=== PATIENT | male | born 1990 | race Caucasian/White ===

== ENCOUNTER 2023-01-19 20:42 | Inpatient (IN) | payer MEDICAID, SELFPAY ==
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
[2023-01-19 22:00] VITALS: BP 161/100; PULSE 100; RESP 18; TEMP 36.2; O2SAT 100
[2023-01-19 22:17] VITALS: BMI 26.5
--- NOTE | 2023-01-20 02:22 | PC.ADMIT ---
Adelso Ferguson is a 33yo male, [place] [facility] [place] [facility] for treatment of Schizoaffective disorder, SI, and auditory hallucination. He presented due to increase concerns of being non-meds compliant, hearing of voices and decompensation. Pt is on a riddle order and appears to have been cheeking medication. Pt also had seizure a week ago that has resulted in Med changes. He is calm but talkative with some incoherent speech[ mixing Setswana and Wolof together]. He is uncooperative preferring not to answer question directly which makes him difficult to understand during admission process. He denies SI/HI but appear to be responding to internal stimuli/ auditory hallucination, declined to sign authorization forms and safety tools yet to be done. Treatment plan initiated and hospitalist informed for consultation.
[2023-01-20 08:48] VITALS: BP 133/90; PULSE 96; RESP 16; TEMP 36.2; O2SAT 99
[2023-01-20] MEDS: Metoprolol Tartrate 12.5 MG HALFTAB PO ×2 (08:49→22:10)
[2023-01-20] MEDS: Levothyroxine Sodium 100 MCG TABLET PO (08:49)
[2023-01-20] MEDS: FLUoxetine HCl 20 MG CAPSULE 80 MG PO (08:49)
[2023-01-20 10:39] LABS: Neut%MD 76.7 %; WBCANC 15.6 X10*3/uL
--- NOTE | 2023-01-20 11:42 | HO.PSYADMNOT ---
[facility] Date of Service: 01/20/23 Chief Complaint: F25.0 Sources of Information: patient interviewed, chart reviewed and crisis/core team assessment reviewed HPI Subjective Notes: Alcantar Warning and Conditional Voluntary Narrative: The patient is a 33-year-old descent male, single, with no children, chronically mentally ill with a diagnosis of schizoaffective disorder bipolar type, with a guardianship and a court order for treatment over objection on Clozaril. He also carries a diagnosis of traumatic brain injury. The patient usually resides at a [facility] longterm but 1 week ago the patient had a seizure. His Clozaril was stopped and since then his mother pick him up from the longterm since she was worried that he could eloped. The patient was grossly psychotic, he decompensated very fast and his mother call 911 asking for crisis assessment. The patient was assessed by crisis and transferring initially to the emergency room of [facility]. He was medically cleared, reassessed by crisis and transferring to this facility for psychiatric stabilization. Apparently, the patient is fairly stable on Clozaril 50 mg p.o. q.a.m. and 400 mg p.o. q.h.s.. His Clozaril was stopped at least 5 days ago and he was seen grossly disorganized, responding to internal stimuli, with word salad, illogical but easily redirectable. Also he looks manic with disinhibited mood, singing and with an expansive mood. According to the report of the longterm staff, the patient had been abusing more cannabis recently. At the moment of the admission, we do not have his court order for treatment over objection, we only have part of the paperwork but there was no specifications of the maximum dose of Clozaril. He was agreeable to restart medications. I offer him a conditional voluntary and he signed it, he stated he wants to be in the hospital and he could understand Alcantar warning. Past Psychiatric History: As per crisis report he has prior admissions into the hospital for psychiatric admission. His [facility] case managed and he lives in a longterm. Medical Evaluation Reviewed: Yes [facility] Family History: Denies Social History: Chronically mentally ill, he lives in a longterm, he has [facility] case management services. Even though he has a family who is involved and looks after him. Substance History: History of cannabis abuse Trauma History: Unknown, the patient is a very poor historian Diagnostics Vital Signs (24Hr): Vital Signs - 24 hr 01/19/23 22:00 01/20/23 08:48 Temperature 97.1 F 97.1 F Pulse Rate 100 96 Respiratory Rate 18 16 Blood Pressure 161/100 H 133/90 H Pulse Oximetry 100 99 Oxygen Delivery Method Room Air Room Air BMI result Body Mass Index 26.5 Labs Labs: Laboratory Results - last 48 hr 01/20/23 10:16 Absolute Neuts (auto) 12.0 H Meds/Allergies Meds Home Medications Medication Instructions Recorded Confirmed Type clozapine 200 mg tablet 400 mg PO BEDTIME 01/20/23 01/20/23 History clozapine 50 mg tablet 50 mg PO QAM 01/20/23 01/20/23 History fluoxetine 40 mg capsule 80 mg PO QAM 01/20/23 01/20/23 History levothyroxine 100 mcg tablet 100 mcg PO DAILY 01/20/23 01/20/23 History metoprolol tartrate 25 mg tablet 12.5 mg PO BID 01/20/23 01/20/23 History Allergies Allergies Allergy/AdvReac Type Severity Reaction Status Date / Time Penicillins Allergy Anaphylaxis Verified 01/19/23 23:15 Mental Status Exam Mental Status Exam Patient Appearance: Appropriate and Unkempt Patient Orientation: Person and Situation Level of Consciousness: Awake and Restless Patient Behavior: Talkative, Restless, Good Eye Contact and Impulsive Mood Description: Elated Affect Description: Cheerful and Labile Patient Cognition Impaired: Yes Ability to Follow Directions: Fair Speech Pattern: Rambling, Rapid and Excited Hallucinations: Auditory and Visual Delusions: Grandiose and Ideas of Reference Thought Process: Incoherent, Illogical and Distracted Thought Content: positive for Perseveration, positive for Thought Blocking and positive for Tangential Judgement: Fair Assessment & Plan Assessment & Plan (1) Schizoaffective disorder: Status: Acute Code(s): F25.9 - Schizoaffective disorder, unspecified (2) Traumatic brain injury: Status: Acute Code(s): S06.9XAA - Unspecified intracranial injury with loss of consciousness status unknown, initial encounter (3) Seizure disorder: Status: Acute Code(s): G40.909 - Epilepsy, unspecified, not intractable, without status epilepticus Plan The patient is a adult descent male with a past history of schizoaffective disorder chronically mentally ill, [facility] case managed living in a longterm who was admitted into the facility for psychotic this compensation after his Clozaril was stopped 1 week ago after seizure. On admission his grossly psychotic and manic. Plan 1. Gather collateral information. We will need to get the legal paperwork regarding what can of medications are alternatives on his court order for treatment over objection. 2. On the meantime, we are going to restart clozapine 50 mg p.o. q.a.m. and we start a fast titration of clozapine. He is taking 200 mg p.o. q.h.s. starting today. 3. Since the patient is manic we are lowering his Prozac from 80 mg daily to 40 mg p.o.. [place] according to the chart he had a seizure last week and they decided to stop Clozaril. We are starting a low dose of Depakote for seizure precautions and to target kaylah. 4. Reassessment with results Patient educated on: diagnosis Reason for continued inpatient stay Substantial Risk for: inability to function, rapid decompensation and med/psych decompensation Statement Statement: I have reviewed the history and physical and performed a pertinent examination on my patient. No changes have occurred unless specified. If the History and Physical was not performed prior to admission, the Hospitalist's service will be consulted for completing the admission physical. Time Spent With Patient Time: Total time managing care of this patient today ___45_ minutes.
--- NOTE | 2023-01-20 12:24 | HO.PM.IMCN ---
History of Present Illness Data of Consult Service Date: 01/20/23 Primary Care Provider: Unknown Physician HPI Reason for consult: Admission H&P Pt is a 33-year-old male with a PMH significant for?TBI, cognitive impairment, schizoaffective disorder bipolar type, and with a guardianship and court order for treatment over objection who is admitted to [facility] psychiatry unit for a grossly psychotic episode with disorganization, responding to internal stimuli, and disinhibition. Patient normally resides at a [facility]ci, but one week ago had a seizure and his Clozaril was stopped. Mother then picked him up over worry that he would elope. Pt has since stopped taking his prescribed meds and decompensated quickly. Medical consult for admission H&P. ?Pt seen and evaluated in room where he appears to be in acute psychosis, with expansive mood, seemingly responding to internal stimuli, and speaking and singing to himself. Pt is redirectable and answers questions appropriately. He denies any significant PMC does not have any acute medical complaints at this time. Review of Systems Review of Systems: Pt has no acute medical complaints at this time [facility] Social History Household Members: None Housing: Homeless Do you presently have visiting nurse or other home services: No Patient Tobacco Use Status: Current everyday Tobacco user Tobacco use type: Cigarette Smoked in Last 30 Days: Yes e-Cigarette/Vaping Use: Currently Using Patient Interested in Nicotine Replacement: No Patient Given Instructions on How to Stop Smoking: No Second Hand Smoke Exposure: No Use of substances other than those prescribed or required for medical reasons: Yes Substance Use Type: Marijuana Substance Use Frequency: Weekly Last Used Substance: Unknown Currently Displaying Signs/Symptoms of Drug Intoxication Withdrawal: No Any prior treatment program specific to substance use: No Have you been hit, kicked, punched, or otherwise hurt by someone within the past year? If so, by whom?: No Do you feel safe in your current relationship?: No Current Relationship Is there a partner from a previous relationship who is making you feel unsafe now?: No Are you made to feel afraid or neglected: No Advance Directives: No Advance Directives Information Provided: No Do you have thoughts of harming others: None Do you have a plan to hurt others: No Plan Recently lost weight without trying: No Eating poorly because of decreased appetite: No Nutrition Risks: No Nutritional Risk Meds Allergies Allergy/AdvReac Type Severity Reaction Status Date / Time Penicillins Allergy Anaphylaxis Verified 01/19/23 23:15 Active Medications: Current Medications Acetaminophen (Acetaminophen 325 Mg Tablet) 650 mg PO Q6H PRN PRN Reason: Headache/Pain Mild Scale (1-3) Al Hydroxide/Mg Hydroxide (Magnesium Hydrox/Alum Hydrox 30 Ml Oral.Susp) 30 ml PO Q6H PRN PRN Reason: Heartburn/Nausea Clozapine (Clozapine 25 Mg Tablet) 50 mg PO DAILY [facility] Clozapine (Clozapine 100 Mg Tablet) 200 mg PO BEDTIME [facility] Divalproex Sodium (Divalproex Sodium 250 Mg Tablet.Dr) 250 mg PO BID [facility] Fluoxetine HCl (Fluoxetine Hcl 20 Mg Capsule) 40 mg PO DAILY [facility] Hydroxyzine HCl (Hydroxyzine Hcl 25 Mg Tablet) 25 mg PO Q6H PRN PRN Reason: Anxiety Levothyroxine Sodium (Levothyroxine Sodium 100 Mcg Tablet) 100 mcg PO DAILY@0600 [facility] Last Admin: 01/20/23 08:49 Dose: 100 mcg Magnesium Hydroxide (Milk Of Magnesia 30 Ml Oral.Susp) 30 ml PO DAILY PRN PRN Reason: Constipation Metoprolol Tartrate (Metoprolol Tartrate 12.5 Mg Halftab) 12.5 mg PO BID [facility]; Protocol Last Admin: 01/20/23 08:49 Dose: 12.5 mg Trazodone HCl (Trazodone Hcl 50 Mg Tablet) 50 mg PO BEDTIME MRX1 PRN PRN Reason: Insomnia Home Medications Medication Instructions Recorded Confirmed Last Taken Type clozapine 200 mg tablet 400 mg PO BEDTIME 01/20/23 01/20/23 Unknown History clozapine 50 mg tablet 50 mg PO QAM 01/20/23 01/20/23 Unknown History fluoxetine 40 mg capsule 80 mg PO QAM 01/20/23 01/20/23 Unknown History levothyroxine 100 mcg tablet 100 mcg PO DAILY 01/20/23 01/20/23 Unknown History metoprolol tartrate 25 mg tablet 12.5 mg PO BID 01/20/23 01/20/23 Unknown History Physical Exam Vital Signs and Narrative: Vital Signs: Last Vital Signs Temp 97.1 F 01/20/23 08:48 Pulse 96 01/20/23 08:48 Resp 16 01/20/23 08:48 BP 133/90 H 01/20/23 08:48 Pulse Ox 99 01/20/23 08:48 O2 Del Method Room Air 01/20/23 08:48 BMI result Body Mass Index 26.5 General: AOx3, no acute distress Resp: CTA bilaterally CVS: S1, S2, RRR GI: +BS, NT, no distention Skin: No rash Neuro: Cranial nerves II-XII grossly intact bilaterally. Motor grossly intact bilaterally Extremities: No edema Psych: Expansive mood, singing and speaking to self, cooperative, seems in manic/psychotic episode Results Labs 01/21/23 09:14 Labs: Laboratory Results - last 24 hr 01/20/23 10:16 Absolute Neuts (auto) 12.0 H Assessment and Plan (1) Medical clearance for psychiatric admission: Status: Acute Plan Pt is a 33-year-old male with a PMH significant for?TBI, cognitive impairment, schizoaffective disorder bipolar type, and with a guardianship and court order for treatment over objection who is admitted to [facility] psychiatry unit for a grossly psychotic episode with disorganization, responding to internal stimuli, and disinhibition. Medical consult for admission H&P. ? Mood disorder Plan as per psychiatry Hypothyroidism Continue levothyroxine HTN Acceptable control on current therapies Continue home meds Thank you for allowing us to participate in the care of this patient. Signing off at this time. Please let us know if there are any acute complaints or questions. Time Spent With Patient Time: Total time managing care of this patient today ____ minutes.
[2023-01-20] MEDS: cloZAPine 25 MG TABLET 50 MG PO (13:48)
[2023-01-20 22:10] VITALS: BP 107/70; PULSE 69; RESP 18; TEMP 36.6; O2SAT 98
[2023-01-20] MEDS: Divalproex Sodium 250 MG TABLET.DR PO (22:10)
[2023-01-20] MEDS: cloZAPine 100 MG TABLET 200 MG PO (22:10)
[2023-01-21] MEDS: Levothyroxine Sodium 100 MCG TABLET PO (06:35)
[2023-01-21 09:45] VITALS: BP 119/73; PULSE 88; RESP 16; TEMP 36.6; O2SAT 98
[2023-01-21] MEDS: Metoprolol Tartrate 12.5 MG HALFTAB PO ×2 (09:49→21:19)
[2023-01-21] MEDS: Divalproex Sodium 250 MG TABLET.DR PO ×2 (09:49→21:19)
[2023-01-21] MEDS: cloZAPine 25 MG TABLET 50 MG PO (09:49)
[2023-01-21] MEDS: FLUoxetine HCl 20 MG CAPSULE 40 MG PO (09:50)
[2023-01-21 10:26] LABS: Alanine Aminotransferase 36 U/L (0-40); Albumin Level 4.6 g/dL (3.5-5.0); Alkaline Phosphatase 112 U/L (39-117); Anion Gap 15 (12-20); Aspartate Amino Transferase 22 U/L (5-37); Blood Urea Nitrogen 15 mg/dL (9-16); Calcium 10.2 mg/dL (8.4-10.2); Carbon Dioxide 30 mmol/L (22-29); Chloride 101 mmol/L (96-108); Cholesterol 240 mg/dL (<200); Creatinine Clr Calc Pharmacy 85.9; Estimated Glomerular Filt Rate > 60; Glucose Fasting 93 mg/dL (60-99); HDL Cholesterol 37 mg/dL (>40); LDL Cholesterol Calculated 176 mg/dL (<100); Potassium 4.3 mmol/L (3.3-5.1); Sodium 142 mmol/L (135-145); Total Protein 7.8 g/dL (6.5-8.0); Triglycerides 136 mg/dL (<150)
--- NOTE | 2023-01-21 11:40 | P.PNPSI_ITS ---
Subjective Subjective Date of Service: 01/21/23 Reason For Visit: F25.0 Subjective Notes: Conditional Voluntary Interim History: The nursing staff reported the patient had been speaking in Colombian and Estonian, disinhibited, singing and clapping laughing to himself responding to internal stimuli. He had been compliant with medications and he slept well last night. On interview the patient remains pleasantly psychotic, redirectable but with flight of ideas, tangential thought process. I have restarted clozapine 50 mg p.o. q.a.m. and 200 mg p.o. q.h.s.. At this moment I do not have the details on the court order ordeal turn at is. I kept him on Clozaril at a lower dose and I started Depakote to prevent seizures. Mental Status Exam Mental Status Exam Patient Appearance: Appropriate Patient Orientation: Person Level of Consciousness: Awake and Restless Patient Behavior: Guarded and Cooperative Mood Description: Calm and Cheerful Affect Description: Elated Patient Cognition Impaired: Yes Ability to Follow Directions: Good Speech Pattern: Clear, Rapid and Animated Hallucinations: Auditory Delusions: Paranoid Ideation, Grandiose and Ideas of Reference Thought Process: Racing, Illogical and Distracted Thought Content: positive for [place], positive for Perseveration, positive for Poverty of Content and positive for Thought Blocking Judgement: Fair Diagnostics Vital Signs (24Hr): Vital Signs - 24 hr 01/20/23 22:10 01/21/23 09:45 Temperature 97.8 F 97.9 F Pulse Rate 69 88 Respiratory Rate 18 16 Blood Pressure 107/70 119/73 Pulse Oximetry 98 98 Oxygen Delivery Method Room Air Room Air BMI result Body Mass Index 26.5 Labs 01/21/23 09:14 Labs: Laboratory Results - last 48 hr 01/20/23 01/21/23 10:16 09:14 Absolute Neuts (auto) 12.0 H Sodium 142 Potassium 4.3 Chloride 101 Carbon Dioxide 30 H Anion Gap 15 BUN 15 Creatinine 1.16 Estim Creat Clear Calc 85.9 Estimated GFR > 60 Fasting Glucose 93 Calcium 10.2 Total Bilirubin 1.0 AST 22 ALT 36 Alkaline Phosphatase 112 Total Protein 7.8 Albumin 4.6 Triglycerides 136 Cholesterol 240 H LDL Cholesterol, Calc 176 H HDL Cholesterol 37 L Medications Medications Current Medications Acetaminophen (Acetaminophen 325 Mg Tablet) 650 mg PO Q6H PRN PRN Reason: Headache/Pain Mild Scale (1-3) Al Hydroxide/Mg Hydroxide (Magnesium Hydrox/Alum Hydrox 30 Ml Oral.Susp) 30 ml PO Q6H PRN PRN Reason: Heartburn/Nausea Clozapine (Clozapine 25 Mg Tablet) 50 mg PO DAILY [facility] Last Admin: 01/21/23 09:49 Dose: 50 mg Clozapine (Clozapine 100 Mg Tablet) 200 mg PO BEDTIME [facility] Last Admin: 01/20/23 22:10 Dose: 200 mg Divalproex Sodium (Divalproex Sodium 250 Mg Tablet.Dr) 250 mg PO BID [facility] Last Admin: 01/21/23 09:49 Dose: 250 mg Fluoxetine HCl (Fluoxetine Hcl 20 Mg Capsule) 40 mg PO DAILY [facility] Last Admin: 01/21/23 09:50 Dose: 40 mg Hydroxyzine HCl (Hydroxyzine Hcl 25 Mg Tablet) 25 mg PO Q6H PRN PRN Reason: Anxiety Levothyroxine Sodium (Levothyroxine Sodium 100 Mcg Tablet) 100 mcg PO DAILY@0600 [facility] Last Admin: 01/21/23 06:35 Dose: 100 mcg Magnesium Hydroxide (Milk Of Magnesia 30 Ml Oral.Susp) 30 ml PO DAILY PRN PRN Reason: Constipation Metoprolol Tartrate (Metoprolol Tartrate 12.5 Mg Halftab) 12.5 mg PO BID [facility]; Protocol Last Admin: 01/21/23 09:49 Dose: 12.5 mg Trazodone HCl (Trazodone Hcl 50 Mg Tablet) 50 mg PO BEDTIME MRX1 PRN PRN Reason: Insomnia Allergies Allergies Allergy/AdvReac Type Severity Reaction Status Date / Time Penicillins Allergy Anaphylaxis Verified 01/19/23 23:15 Assessment & Plan Assessment & Plan (1) Schizoaffective disorder: Status: Acute Code(s): F25.9 - Schizoaffective disorder, unspecified (2) Traumatic brain injury: Status: Acute Code(s): S06.9XAA - Unspecified intracranial injury with loss of consciousness status unknown, initial encounter (3) Seizure disorder: Status: Acute Code(s): G40.909 - Epilepsy, unspecified, not intractable, without status epilepticus Plan The patient is a adult descent male with a past history of schizoaffective disorder chronically mentally ill, [facility] case managed living in a [facility] who was admitted into the facility for psychotic this compensation after his Clozaril was stopped 1 week ago after seizure. On admission his grossly psychotic and manic. Plan 1. Gather collateral information. We will need to get the legal paperwork regarding what can of medications are alternatives on his court order for treatment over objection. 2. On the meantime, we are going to restart clozapine 50 mg p.o. q.a.m. and we start a fast titration of clozapine. He is taking 200 mg p.o. q.h.s. starting today. 3. Since the patient is manic we are lowering his Prozac from 80 mg daily to 40 mg p.o.. [place] according to the chart he had a seizure last week and they decided to stop Clozaril. We are starting a low dose of Depakote for seizure precautions and to target kaylah. 4. Reassessment with results Reason for continued inpatient stay Substantial Risk for: inability to function, rapid decompensation and med/psych decompensation Time Spent With Patient Time: Total time managing care of this patient today ___20_ minutes.
[2023-01-21 20:15] VITALS: BP 185/75; PULSE 107; RESP 18; TEMP 36.9; O2SAT 98
[2023-01-21 21:05] VITALS: BP 122/70; PULSE 100
[2023-01-21] MEDS: cloZAPine 100 MG TABLET 200 MG PO (21:19)
[2023-01-22] MEDS: Levothyroxine Sodium 100 MCG TABLET PO (05:55)
[2023-01-22] MEDS: FLUoxetine HCl 20 MG CAPSULE 40 MG PO (08:24)
[2023-01-22] MEDS: cloZAPine 25 MG TABLET 50 MG PO (08:24)
[2023-01-22] MEDS: Metoprolol Tartrate 12.5 MG HALFTAB PO ×2 (08:25→21:45)
[2023-01-22] MEDS: Divalproex Sodium 250 MG TABLET.DR PO ×2 (08:25→21:45)
[2023-01-22 08:31] VITALS: BP 131/84; PULSE 97; RESP 18; TEMP 36.2; O2SAT 97
--- NOTE | 2023-01-22 14:46 | P.PNPSI_ITS ---
Subjective Subjective Date of Service: 01/22/23 Reason For Visit: F25.0 Interim History: disorganized. reports eating, sleeping, toileting, getting along with others well. reports mood is fine and denies safety concerns, ambiguous re AVH. per staff, isolative. disorganized. +RIS. self-dialoguing. taking meds. spat out meds this morning, then took them. Mental Status Exam Mental Status Exam Patient Appearance: Appropriate Patient Orientation: Person Level of Consciousness: Awake and Restless Patient Behavior: Guarded and Cooperative Mood Description: Calm and Cheerful Affect Description: Elated Patient Cognition Impaired: Yes Ability to Follow Directions: Good Speech Pattern: Clear, Rapid and Animated Hallucinations: Auditory Delusions: Paranoid Ideation, Grandiose and Ideas of Reference Thought Process: Racing, Illogical and Distracted Thought Content: positive for [place], positive for Perseveration, positive for Poverty of Content and positive for Thought Blocking Judgement: Fair Diagnostics Vital Signs (24Hr): Vital Signs - 24 hr 01/21/23 20:15 01/21/23 21:05 01/22/23 08:31 Temperature 98.4 F 97.2 F Pulse Rate 107 H 100 97 Respiratory Rate 18 18 Blood Pressure 185/75 H 122/70 131/84 Pulse Oximetry 98 97 Oxygen Delivery Method Room Air Room Air BMI result Body Mass Index 26.5 Labs 01/21/23 09:14 Labs: Laboratory Results - last 48 hr 01/21/23 09:14 Sodium 142 Potassium 4.3 Chloride 101 Carbon Dioxide 30 H Anion Gap 15 BUN 15 Creatinine 1.16 Estim Creat Clear Calc 85.9 Estimated GFR > 60 Fasting Glucose 93 Calcium 10.2 Total Bilirubin 1.0 AST 22 ALT 36 Alkaline Phosphatase 112 Total Protein 7.8 Albumin 4.6 Triglycerides 136 Cholesterol 240 H LDL Cholesterol, Calc 176 H HDL Cholesterol 37 L Medications Medications Current Medications Acetaminophen (Acetaminophen 325 Mg Tablet) 650 mg PO Q6H PRN PRN Reason: Headache/Pain Mild Scale (1-3) Al Hydroxide/Mg Hydroxide (Magnesium Hydrox/Alum Hydrox 30 Ml Oral.Susp) 30 ml PO Q6H PRN PRN Reason: Heartburn/Nausea Clozapine (Clozapine 25 Mg Tablet) 50 mg PO DAILY [facility] Last Admin: 01/22/23 08:24 Dose: 50 mg Clozapine (Clozapine 100 Mg Tablet) 200 mg PO BEDTIME [facility] Last Admin: 01/21/23 21:19 Dose: 200 mg Divalproex Sodium (Divalproex Sodium 250 Mg Tablet.Dr) 250 mg PO BID [facility] Last Admin: 01/22/23 08:25 Dose: 250 mg Fluoxetine HCl (Fluoxetine Hcl 20 Mg Capsule) 40 mg PO DAILY [facility] Last Admin: 01/22/23 08:24 Dose: 40 mg Hydroxyzine HCl (Hydroxyzine Hcl 25 Mg Tablet) 25 mg PO Q6H PRN PRN Reason: Anxiety Levothyroxine Sodium (Levothyroxine Sodium 100 Mcg Tablet) 100 mcg PO DAILY@0600 [facility] Last Admin: 01/22/23 05:55 Dose: 100 mcg Magnesium Hydroxide (Milk Of Magnesia 30 Ml Oral.Susp) 30 ml PO DAILY PRN PRN Reason: Constipation Metoprolol Tartrate (Metoprolol Tartrate 12.5 Mg Halftab) 12.5 mg PO BID [facility]; Protocol Last Admin: 01/22/23 08:25 Dose: 12.5 mg Trazodone HCl (Trazodone Hcl 50 Mg Tablet) 50 mg PO BEDTIME MRX1 PRN PRN Reason: Insomnia Allergies Allergies Allergy/AdvReac Type Severity Reaction Status Date / Time Penicillins Allergy Anaphylaxis Verified 01/19/23 23:15 Assessment & Plan Assessment & Plan (1) Schizoaffective disorder: Status: Acute Code(s): F25.9 - Schizoaffective disorder, unspecified (2) Traumatic brain injury: Status: Acute Code(s): S06.9XAA - Unspecified intracranial injury with loss of consciousness status unknown, initial encounter (3) Seizure disorder: Status: Acute Code(s): G40.909 - Epilepsy, unspecified, not intractable, without status epilepticus Plan Pt is a 33-year-old male with a PMH significant for?TBI, cognitive impairment, schizoaffective disorder bipolar type, and with a guardianship and court order for treatment over objection who is admitted to psychiatry unit for a grossly psychotic episode with disorganization, responding to internal stimuli, and disinhibition. Medical consult for admission H&P. ? Mood disorder Plan as per psychiatry Hypothyroidism Continue levothyroxine HTN Acceptable control on current therapies Continue home meds 01/20 - 01/21: Gather collateral information. We will need to get the legal paperwork regarding what can of medications are alternatives on his court order for treatment over objection. In the meantime, we are going to restart clozapine 50 mg p.o. q.a.m. and we start a fast titration of clozapine. He is taking 200 mg p.o. q.h.s. starting today. Since the patient is manic we are lowering his Prozac from 80 mg daily to 40 mg p.o. according to the chart he had a seizure last week and they decided to stop Clozaril. We are starting a low dose of Depakote for seizure precautions and to target kaylah. 01/22: remains disorganized. increase HS clozapine to 250 mg as of tonight. Reason for continued inpatient stay Substantial Risk for: inability to function and rapid decompensation Time Spent With Patient Time: Total time managing care of this patient today _25___ minutes.
[2023-01-22 20:51] VITALS: BP 132/88; PULSE 90; RESP 18; TEMP 36.6; O2SAT 97
[2023-01-22] MEDS: cloZAPine 25 MG TABLET 250 MG PO (21:43)
[2023-01-23 06:00] VITALS: BP 96/54; PULSE 80; RESP 18; TEMP 36.2; O2SAT 97
[2023-01-23] MEDS: Levothyroxine Sodium 100 MCG TABLET PO (07:12)
[2023-01-23 08:49] VITALS: BP 104/63; PULSE 82
[2023-01-23] MEDS: cloZAPine 25 MG TABLET 50 MG PO (08:52)
[2023-01-23] MEDS: Divalproex Sodium 250 MG TABLET.DR PO ×2 (08:52→20:44)
[2023-01-23] MEDS: FLUoxetine HCl 20 MG CAPSULE 40 MG PO (08:52)
[2023-01-23] MEDS: Metoprolol Tartrate 12.5 MG HALFTAB PO ×2 (08:52→20:44)
--- NOTE | 2023-01-23 14:02 | HO.PSYCHPN ---
Subjective Subjective Date of Service: 01/23/23 Reason For Visit: F25.0 Interim History: resting in bed, tired. no questions or concerns. per staff, self-dialoguing. paranoid, hyperverbal, non-sensical. smiling, inappropriate laughter. Mental Status Exam Mental Status Exam Narrative: lying in bed under blanket, adequately groomed. cooperative. no PMA/PMR. speech decr rate, amount, loudness, tone. incr latency. thoughts linear and logical. affect constricted, normo-intense, non-labile. mood tired. no SI/SIBI/HI/AVH expressed. Diagnostics Vital Signs (24Hr): Vital Signs - 24 hr 01/22/23 20:51 01/23/23 06:00 01/23/23 08:49 Temperature 97.9 F 97.2 F Pulse Rate 90 80 82 Respiratory Rate 18 18 Blood Pressure 132/88 96/54 L 104/63 Pulse Oximetry 97 97 Oxygen Delivery Method Room Air Room Air BMI result Body Mass Index 26.5 Labs 01/21/23 09:14 Medications Medications Current Medications Acetaminophen (Acetaminophen 325 Mg Tablet) 650 mg PO Q6H PRN PRN Reason: Headache/Pain Mild Scale (1-3) Al Hydroxide/Mg Hydroxide (Magnesium Hydrox/Alum Hydrox 30 Ml Oral.Susp) 30 ml PO Q6H PRN PRN Reason: Heartburn/Nausea Clozapine (Clozapine 25 Mg Tablet) 50 mg PO DAILY [facility] Last Admin: 01/23/23 08:52 Dose: 50 mg Clozapine (Clozapine 25 Mg Tablet) 250 mg PO BEDTIME [facility] Last Admin: 01/22/23 21:43 Dose: 250 mg Divalproex Sodium (Divalproex Sodium 250 Mg Tablet.Dr) 250 mg PO BID [facility] Last Admin: 01/23/23 08:52 Dose: 250 mg Fluoxetine HCl (Fluoxetine Hcl 20 Mg Capsule) 40 mg PO DAILY [facility] Last Admin: 01/23/23 08:52 Dose: 40 mg Hydroxyzine HCl (Hydroxyzine Hcl 25 Mg Tablet) 25 mg PO Q6H PRN PRN Reason: Anxiety Levothyroxine Sodium (Levothyroxine Sodium 100 Mcg Tablet) 100 mcg PO DAILY@0600 [facility] Last Admin: 01/23/23 07:12 Dose: 100 mcg Magnesium Hydroxide (Milk Of Magnesia 30 Ml Oral.Susp) 30 ml PO DAILY PRN PRN Reason: Constipation Metoprolol Tartrate (Metoprolol Tartrate 12.5 Mg Halftab) 12.5 mg PO BID [facility]; Protocol Last Admin: 01/23/23 08:52 Dose: 12.5 mg Trazodone HCl (Trazodone Hcl 50 Mg Tablet) 50 mg PO BEDTIME MRX1 PRN PRN Reason: Insomnia Allergies Allergies Allergy/AdvReac Type Severity Reaction Status Date / Time Penicillins Allergy Anaphylaxis Verified 01/19/23 23:15 Assessment & Plan Assessment & Plan (1) Schizoaffective disorder: Status: Acute Code(s): F25.9 - Schizoaffective disorder, unspecified (2) Traumatic brain injury: Status: Acute Code(s): S06.9XAA - Unspecified intracranial injury with loss of consciousness status unknown, initial encounter (3) Seizure disorder: Status: Acute Code(s): G40.909 - Epilepsy, unspecified, not intractable, without status epilepticus Plan Pt is a 33-year-old male with a PMH significant for?TBI, cognitive impairment, schizoaffective disorder bipolar type, and with a guardianship and court order for treatment over objection who is admitted to psychiatry unit for a grossly psychotic episode with disorganization, responding to internal stimuli, and disinhibition. Medical consult for admission H&P. ? Mood disorder Plan as per psychiatry Hypothyroidism Continue levothyroxine HTN Acceptable control on current therapies Continue home meds 01/20 - 01/21: Gather collateral information. We will need to get the legal paperwork regarding what can of medications are alternatives on his court order for treatment over objection. In the meantime, we are going to restart clozapine 50 mg p.o. q.a.m. and we start a fast titration of clozapine. He is taking 200 mg p.o. q.h.s. starting today. Since the patient is manic we are lowering his Prozac from 80 mg daily to 40 mg p.o. according to the chart he had a seizure last week and they decided to stop Clozaril. We are starting a low dose of Depakote for seizure precautions and to target kaylah. 01/22: remains disorganized. increase HS clozapine to 250 mg as of tonight. 01/23: perhaps slightly more organized, tired. increase HS clozapine to 300 mg as of tonight. Reason for continued inpatient stay Substantial Risk for: inability to function and rapid decompensation Time Spent With Patient Time: Total time managing care of this patient today ____ minutes.
[2023-01-23] MEDS: cloZAPine 100 MG TABLET 300 MG PO (20:44)
[2023-01-23 20:46] VITALS: BP 142/80; PULSE 123; RESP 19; TEMP 36.2; O2SAT 98
[2023-01-24] MEDS: Levothyroxine Sodium 100 MCG TABLET PO (06:36)
[2023-01-24] MEDS: FLUoxetine HCl 20 MG CAPSULE 40 MG PO (09:12)
[2023-01-24] MEDS: cloZAPine 25 MG TABLET 50 MG PO (09:12)
[2023-01-24] MEDS: Metoprolol Tartrate 12.5 MG HALFTAB PO ×2 (09:13→21:03)
[2023-01-24] MEDS: Divalproex Sodium 250 MG TABLET.DR PO ×2 (09:13→21:03)
[2023-01-24 09:14] VITALS: BP 122/75; PULSE 87; RESP 16; TEMP 36.5; O2SAT 100
--- NOTE | 2023-01-24 15:20 | HO.PSYCHPN ---
Subjective Subjective Date of Service: 01/24/23 Reason For Visit: F25.0 Interim History: calm, cooperative. bizarre, tangential. unable to directly answer question about AH. per staff, anxious and suspicious. self-dialoguing. safe. avoidant re mental health Sx. watching TV. showered. pacing. slept. Mental Status Exam Mental Status Exam Narrative: up and about the unit, adequately groomed and dressed. cooperative. no PMA/PMR. speech nml rate, decr amount, nml loudness, nml tone, nml latency. thoughts linear and logical. affect full range, normo-intense, non-labile. mood good. no SI/SIBI/HI/AVH expressed. Diagnostics Vital Signs (24Hr): Vital Signs - 24 hr 01/23/23 20:46 01/24/23 09:14 Temperature 97.1 F 97.7 F Pulse Rate 123 H 87 Respiratory Rate 19 16 Blood Pressure 142/80 H 122/75 Pulse Oximetry 98 100 Oxygen Delivery Method Room Air Room Air BMI result Body Mass Index 26.5 Labs 01/21/23 09:14 Medications Medications Current Medications Acetaminophen (Acetaminophen 325 Mg Tablet) 650 mg PO Q6H PRN PRN Reason: Headache/Pain Mild Scale (1-3) Al Hydroxide/Mg Hydroxide (Magnesium Hydrox/Alum Hydrox 30 Ml Oral.Susp) 30 ml PO Q6H PRN PRN Reason: Heartburn/Nausea Clozapine (Clozapine 25 Mg Tablet) 50 mg PO DAILY [facility] Last Admin: 01/24/23 09:12 Dose: 50 mg Clozapine (Clozapine 25 Mg Tablet) 350 mg PO BEDTIME [facility] Divalproex Sodium (Divalproex Sodium 250 Mg Tablet.) 250 mg PO BID [facility] Last Admin: 01/24/23 09:13 Dose: 250 mg Fluoxetine HCl (Fluoxetine Hcl 20 Mg Capsule) 40 mg PO DAILY [facility] Last Admin: 01/24/23 09:12 Dose: 40 mg Hydroxyzine HCl (Hydroxyzine Hcl 25 Mg Tablet) 25 mg PO Q6H PRN PRN Reason: Anxiety Levothyroxine Sodium (Levothyroxine Sodium 100 Mcg Tablet) 100 mcg PO DAILY@0600 [facility] Last Admin: 01/24/23 06:36 Dose: 100 mcg Magnesium Hydroxide (Milk Of Magnesia 30 Ml Oral.Susp) 30 ml PO DAILY PRN PRN Reason: Constipation Metoprolol Tartrate (Metoprolol Tartrate 12.5 Mg Halftab) 12.5 mg PO BID [facility]; Protocol Last Admin: 01/24/23 09:13 Dose: 12.5 mg Trazodone HCl (Trazodone Hcl 50 Mg Tablet) 50 mg PO BEDTIME MRX1 PRN PRN Reason: Insomnia Allergies Allergies Allergy/AdvReac Type Severity Reaction Status Date / Time Penicillins Allergy Anaphylaxis Verified 01/19/23 23:15 Assessment & Plan Assessment & Plan (1) Schizoaffective disorder: Status: Acute Code(s): F25.9 - Schizoaffective disorder, unspecified (2) Traumatic brain injury: Status: Acute Code(s): S06.9XAA - Unspecified intracranial injury with loss of consciousness status unknown, initial encounter (3) Seizure disorder: Status: Acute Code(s): G40.909 - Epilepsy, unspecified, not intractable, without status epilepticus Plan Pt is a 33-year-old male with a PMH significant for?TBI, cognitive impairment, schizoaffective disorder bipolar type, and with a guardianship and court order for treatment over objection who is admitted to psychiatry unit for a grossly psychotic episode with disorganization, responding to internal stimuli, and disinhibition. Medical consult for admission H&P. ? Mood disorder Plan as per psychiatry Hypothyroidism Continue levothyroxine HTN Acceptable control on current therapies Continue home meds 01/20 - 01/21: Gather collateral information. We will need to get the legal paperwork regarding what can of medications are alternatives on his court order for treatment over objection. In the meantime, we are going to restart clozapine 50 mg p.o. q.a.m. and we start a fast titration of clozapine. He is taking 200 mg p.o. q.h.s. starting today. Since the patient is manic we are lowering his Prozac from 80 mg daily to 40 mg p.o. according to the chart he had a seizure last week and they decided to stop Clozaril. We are starting a low dose of Depakote for seizure precautions and to target kaylah. 01/22: remains disorganized. increase HS clozapine to 250 mg as of tonight. 01/23: perhaps slightly more organized, tired. increase HS clozapine to 300 mg as of tonight. 01/24: bizarre, tangential. increase clozapine to 350 mg as of tonight. Reason for continued inpatient stay Substantial Risk for: inability to function and rapid decompensation Time Spent With Patient Time: Total time managing care of this patient today __25__ minutes.
[2023-01-24 20:47] VITALS: BP 143/89; PULSE 81; TEMP 36.2; O2SAT 99
[2023-01-24] MEDS: cloZAPine 25 MG TABLET 350 MG PO (21:03)
[2023-01-25] MEDS: Levothyroxine Sodium 100 MCG TABLET PO (06:51)
[2023-01-25 07:00] VITALS: BMI 25.2
[2023-01-25 08:45] VITALS: BP 120/58; PULSE 90; RESP 18; TEMP 36.1; O2SAT 100
[2023-01-25] MEDS: cloZAPine 25 MG TABLET 50 MG PO (08:59)
[2023-01-25] MEDS: Divalproex Sodium 250 MG TABLET.DR PO ×2 (08:59→20:39)
[2023-01-25] MEDS: Metoprolol Tartrate 12.5 MG HALFTAB PO ×2 (08:59→20:39)
[2023-01-25] MEDS: FLUoxetine HCl 20 MG CAPSULE 40 MG PO (08:59)
--- NOTE | 2023-01-25 15:37 | P.PNPSI_ITS ---
Subjective Subjective Date of Service: 01/25/23 Reason For Visit: F25.0 Interim History: up and active on the unit. remains bizarre, tangential, but pleasant and cooperative. informed of plan to return his clozapine dosing to 400 mg tonight, his usual outpt dose. alice flaherty MD inquires as to what, he says he doesn't need to take clozapine. per staff, self-dialoguing. non-sequiturs. med- compliant. no behavioral concerns. slept well. Mental Status Exam Mental Status Exam Narrative: up and about the unit, adequately groomed and dressed. cooperative. no PMA/PMR. speech nml rate, nml amount, nml loudness, nml tone, nml latency. thoughts tangential, loose. affect full range, normo-intense, non-labile. mood good. no SI/SIBI/HI/AVH expressed. Diagnostics Vital Signs (24Hr): Vital Signs - 24 hr 01/24/23 20:47 01/25/23 08:45 Temperature 97.2 F 97.0 F Pulse Rate 81 90 Respiratory Rate 18 Blood Pressure 143/89 H 120/58 L Pulse Oximetry 99 100 Oxygen Delivery Method Room Air Room Air BMI result Body Mass Index 25.2 Labs 01/21/23 09:14 Medications Medications Current Medications Acetaminophen (Acetaminophen 325 Mg Tablet) 650 mg PO Q6H PRN PRN Reason: Headache/Pain Mild Scale (1-3) Al Hydroxide/Mg Hydroxide (Magnesium Hydrox/Alum Hydrox 30 Ml Oral.Susp) 30 ml PO Q6H PRN PRN Reason: Heartburn/Nausea Clozapine (Clozapine 25 Mg Tablet) 50 mg PO DAILY [facility] Last Admin: 01/25/23 08:59 Dose: 50 mg Clozapine (Clozapine 100 Mg Tablet) 400 mg PO BEDTIME [facility] Divalproex Sodium (Divalproex Sodium 250 Mg Tablet.) 250 mg PO BID [facility] Last Admin: 01/25/23 08:59 Dose: 250 mg Fluoxetine HCl (Fluoxetine Hcl 20 Mg Capsule) 40 mg PO DAILY [facility] Last Admin: 01/25/23 08:59 Dose: 40 mg Hydroxyzine HCl (Hydroxyzine Hcl 25 Mg Tablet) 25 mg PO Q6H PRN PRN Reason: Anxiety Levothyroxine Sodium (Levothyroxine Sodium 100 Mcg Tablet) 100 mcg PO DAILY@0600 [facility] Last Admin: 01/25/23 06:51 Dose: 100 mcg Magnesium Hydroxide (Milk Of Magnesia 30 Ml Oral.Susp) 30 ml PO DAILY PRN PRN Reason: Constipation Metoprolol Tartrate (Metoprolol Tartrate 12.5 Mg Halftab) 12.5 mg PO BID [facility]; Protocol Last Admin: 01/25/23 08:59 Dose: 12.5 mg Trazodone HCl (Trazodone Hcl 50 Mg Tablet) 50 mg PO BEDTIME MRX1 PRN PRN Reason: Insomnia Allergies Allergies Allergy/AdvReac Type Severity Reaction Status Date / Time Penicillins Allergy Anaphylaxis Verified 01/19/23 23:15 Assessment & Plan Assessment & Plan (1) Schizoaffective disorder: Status: Acute Code(s): F25.9 - Schizoaffective disorder, unspecified (2) Traumatic brain injury: Status: Acute Code(s): S06.9XAA - Unspecified intracranial injury with loss of consciousness status unknown, initial encounter (3) Seizure disorder: Status: Acute Code(s): G40.909 - Epilepsy, unspecified, not intractable, without status epilepticus Plan Pt is a 33-year-old male with a PMH significant for?TBI, cognitive impairment, schizoaffective disorder bipolar type, and with a guardianship and court order for treatment over objection who is admitted to [facility] psychiatry unit for a grossly psychotic episode with disorganization, responding to internal stimuli, and disinhibition. Medical consult for admission H&P. ? Mood disorder Plan as per psychiatry Hypothyroidism Continue levothyroxine HTN Acceptable control on current therapies Continue home meds 01/20 - 01/21: Gather collateral information. We will need to get the legal paperwork regarding what can of medications are alternatives on his court order for treatment over objection. In the meantime, we are going to restart clozapine 50 mg p.o. q.a.m. and we start a fast titration of clozapine. He is taking 200 mg p.o. q.h.s. starting today. Since the patient is manic we are lowering his Prozac from 80 mg daily to 40 mg p.o. according to the chart he had a seizure last week and they decided to stop Clozaril. We are starting a low dose of Depakote for seizure precautions and to target kaylah. 01/22: remains disorganized. increase HS clozapine to 250 mg as of tonight. 01/23: perhaps slightly more organized, tired. increase HS clozapine to 300 mg as of tonight. 01/24: bizarre, tangential. increase clozapine to 350 mg as of tonight. 01/25: stable presentation. return clozapine dosing to 400 mg tonight, his usual outpt dose. Reason for continued inpatient stay Substantial Risk for: inability to function and rapid decompensation Time Spent With Patient Time: Total time managing care of this patient today __25__ minutes.
[2023-01-25 20:00] VITALS: BP 105/94; PULSE 104; RESP 18; TEMP 36.2; O2SAT 97
[2023-01-25] MEDS: cloZAPine 100 MG TABLET 400 MG PO (20:39)
[2023-01-25 21:30] VITALS: BP 143/82; RESP 18
[2023-01-26] MEDS: Levothyroxine Sodium 100 MCG TABLET PO (07:17)
[2023-01-26 09:05] VITALS: BP 131/71; PULSE 97; RESP 18; TEMP 36.3; O2SAT 98
[2023-01-26] MEDS: Divalproex Sodium 250 MG TABLET.DR PO ×2 (09:08→21:37)
[2023-01-26] MEDS: cloZAPine 25 MG TABLET 50 MG PO (09:09)
[2023-01-26] MEDS: Metoprolol Tartrate 12.5 MG HALFTAB PO ×2 (09:09→21:37)
[2023-01-26] MEDS: FLUoxetine HCl 20 MG CAPSULE 40 MG PO (09:09)
[2023-01-26 09:12] LABS: Neut%MD 63.6 %; WBCANC 7.8 X10*3/uL
--- NOTE | 2023-01-26 14:49 | HO.PSYCHPN ---
Subjective Subjective Date of Service: 01/26/23 Reason For Visit: F25.0 Interim History: echolalia. flashing the peace sign. per staff, bright. denies anx/dep. not attending groups. taking meds. +RIS. singing. Mental Status Exam Mental Status Exam Narrative: up and about the unit, adequately groomed and dressed. cooperative. no PMA/PMR. speech nml rate, nml amount, nml loudness, nml tone, nml latency. thoughts tangential, loose. echolalia. affect full range, normo-intense, non-labile. no SI/SIBI/HI/AVH expressed. Diagnostics Vital Signs (24Hr): Vital Signs - 24 hr 01/25/23 20:00 01/25/23 21:30 Temperature 97.1 F Pulse Rate 104 H Respiratory Rate 18 18 Blood Pressure 105/94 H 143/82 H Pulse Oximetry 97 Oxygen Delivery Method Room Air BMI result Body Mass Index 25.2 Labs 01/21/23 09:14 Labs: Laboratory Results - last 48 hr 01/26/23 09:03 Absolute Neuts (auto) 5.0 Hold Green Top See Note Medications Medications Current Medications Acetaminophen (Acetaminophen 325 Mg Tablet) 650 mg PO Q6H PRN PRN Reason: Headache/Pain Mild Scale (1-3) Al Hydroxide/Mg Hydroxide (Magnesium Hydrox/Alum Hydrox 30 Ml Oral.Susp) 30 ml PO Q6H PRN PRN Reason: Heartburn/Nausea Clozapine (Clozapine 25 Mg Tablet) 50 mg PO DAILY [facility] Last Admin: 01/26/23 09:09 Dose: 50 mg Clozapine (Clozapine 100 Mg Tablet) 400 mg PO BEDTIME [facility] Last Admin: 01/25/23 20:39 Dose: 400 mg Divalproex Sodium (Divalproex Sodium 250 Mg Tablet.) 250 mg PO BID [facility] Last Admin: 01/26/23 09:08 Dose: 250 mg Fluoxetine HCl (Fluoxetine Hcl 20 Mg Capsule) 40 mg PO DAILY [facility] Last Admin: 01/26/23 09:09 Dose: 40 mg Hydroxyzine HCl (Hydroxyzine Hcl 25 Mg Tablet) 25 mg PO Q6H PRN PRN Reason: Anxiety Levothyroxine Sodium (Levothyroxine Sodium 100 Mcg Tablet) 100 mcg PO DAILY@0600 [facility] Last Admin: 01/26/23 07:17 Dose: 100 mcg Magnesium Hydroxide (Milk Of Magnesia 30 Ml Oral.Susp) 30 ml PO DAILY PRN PRN Reason: Constipation Metoprolol Tartrate (Metoprolol Tartrate 12.5 Mg Halftab) 12.5 mg PO BID [facility]; Protocol Last Admin: 01/26/23 09:09 Dose: 12.5 mg Trazodone HCl (Trazodone Hcl 50 Mg Tablet) 50 mg PO BEDTIME MRX1 PRN PRN Reason: Insomnia Allergies Allergies Allergy/AdvReac Type Severity Reaction Status Date / Time Penicillins Allergy Anaphylaxis Verified 01/19/23 23:15 Assessment & Plan Assessment & Plan (1) Schizoaffective disorder: Status: Acute Code(s): F25.9 - Schizoaffective disorder, unspecified (2) Traumatic brain injury: Status: Acute Code(s): S06.9XAA - Unspecified intracranial injury with loss of consciousness status unknown, initial encounter (3) Seizure disorder: Status: Acute Code(s): G40.909 - Epilepsy, unspecified, not intractable, without status epilepticus Plan Pt is a 33-year-old male with a PMH significant for?TBI, cognitive impairment, schizoaffective disorder bipolar type, and with a guardianship and court order for treatment over objection who is admitted to psychiatry unit for a grossly psychotic episode with disorganization, responding to internal stimuli, and disinhibition. Medical consult for admission H&P. ? Mood disorder Plan as per psychiatry Hypothyroidism Continue levothyroxine HTN Acceptable control on current therapies Continue home meds 01/20 - 01/21: Gather collateral information. We will need to get the legal paperwork regarding what can of medications are alternatives on his court order for treatment over objection. In the meantime, we are going to restart clozapine 50 mg p.o. q.a.m. and we start a fast titration of clozapine. He is taking 200 mg p.o. q.h.s. starting today. Since the patient is manic we are lowering his Prozac from 80 mg daily to 40 mg p.o. according to the chart he had a seizure last week and they decided to stop Clozaril. We are starting a low dose of Depakote for seizure precautions and to target kaylah. 01/22: remains disorganized. increase HS clozapine to 250 mg as of tonight. 01/23: perhaps slightly more organized, tired. increase HS clozapine to 300 mg as of tonight. 01/24: bizarre, tangential. increase clozapine to 350 mg as of tonight. 01/25: stable presentation. return clozapine dosing to 400 mg tonight, his usual outpt dose. 01/26: in a good humor but disorganized, echolalia. clozapine now back at home dose. continue current mgmt. Reason for continued inpatient stay Substantial Risk for: inability to function and rapid decompensation Time Spent With Patient Time: Total time managing care of this patient today ____ minutes.
[2023-01-26 21:25] VITALS: BP 144/69; PULSE 89; RESP 18; O2SAT 96
[2023-01-26] MEDS: cloZAPine 100 MG TABLET 400 MG PO (21:37)
[2023-01-27] MEDS: Levothyroxine Sodium 100 MCG TABLET PO (07:46)
[2023-01-27] MEDS: Metoprolol Tartrate 12.5 MG HALFTAB PO ×2 (09:03→21:10)
[2023-01-27] MEDS: FLUoxetine HCl 20 MG CAPSULE 40 MG PO (09:04)
[2023-01-27] MEDS: Divalproex Sodium 250 MG TABLET.DR PO ×2 (09:04→21:10)
[2023-01-27] MEDS: cloZAPine 25 MG TABLET 50 MG PO (09:04)
[2023-01-27 10:39] VITALS: BP 143/67; PULSE 90; TEMP 36.1; O2SAT 98
[2023-01-27 16:16] VITALS: BP 138/79; PULSE 87; RESP 16; TEMP 36.6; O2SAT 97
[2023-01-27 20:50] VITALS: BP 124/84; PULSE 103; RESP 18; TEMP 36.3; O2SAT 98
[2023-01-27] MEDS: cloZAPine 100 MG TABLET 400 MG PO (21:11)
--- NOTE | 2023-01-27 21:24 | P.PNPSI_ITS ---
Subjective Subjective Date of Service: 01/27/23 Reason For Visit: F25.0 Interim History: stable presentation. per staff, pleasantly psychotic. Mental Status Exam Mental Status Exam Narrative: up and about the unit, adequately groomed and dressed. cooperative. no PMA/PMR. speech nml rate, nml amount, nml loudness, nml tone, nml latency. thoughts tangential, loose. echolalia. affect full range, normo-intense, non- labile. no SI/SIBI/HI/AVH expressed. Diagnostics Vital Signs (24Hr): Vital Signs - 24 hr 01/26/23 21:25 01/27/23 10:39 01/27/23 16:16 Temperature 96.9 F 97.8 F Pulse Rate 89 90 87 Respiratory Rate 18 16 Blood Pressure 144/69 H 143/67 H 138/79 Pulse Oximetry 96 98 97 Oxygen Delivery Method Room Air Room Air Room Air BMI result Body Mass Index 25.2 Labs 01/21/23 09:14 Labs: Laboratory Results - last 48 hr 01/26/23 09:03 Absolute Neuts (auto) 5.0 Hold Green Top See Note Medications Medications Current Medications Acetaminophen (Acetaminophen 325 Mg Tablet) 650 mg PO Q6H PRN PRN Reason: Headache/Pain Mild Scale (1-3) Al Hydroxide/Mg Hydroxide (Magnesium Hydrox/Alum Hydrox 30 Ml Oral.Susp) 30 ml PO Q6H PRN PRN Reason: Heartburn/Nausea Clozapine (Clozapine 25 Mg Tablet) 50 mg PO DAILY [facility] Last Admin: 01/27/23 09:04 Dose: 50 mg Clozapine (Clozapine 100 Mg Tablet) 400 mg PO BEDTIME [facility] Last Admin: 01/27/23 21:11 Dose: 400 mg Divalproex Sodium (Divalproex Sodium 250 Mg Tablet.Dr) 250 mg PO BID [facility] Last Admin: 01/27/23 21:10 Dose: 250 mg Fluoxetine HCl (Fluoxetine Hcl 20 Mg Capsule) 40 mg PO DAILY [facility] Last Admin: 01/27/23 09:04 Dose: 40 mg Hydroxyzine HCl (Hydroxyzine Hcl 25 Mg Tablet) 25 mg PO Q6H PRN PRN Reason: Anxiety Levothyroxine Sodium (Levothyroxine Sodium 100 Mcg Tablet) 100 mcg PO DAILY@0600 [facility] Last Admin: 01/27/23 07:46 Dose: 100 mcg Magnesium Hydroxide (Milk Of Magnesia 30 Ml Oral.Susp) 30 ml PO DAILY PRN PRN Reason: Constipation Metoprolol Tartrate (Metoprolol Tartrate 12.5 Mg Halftab) 12.5 mg PO BID [facility]; Protocol Last Admin: 01/27/23 21:10 Dose: 12.5 mg Trazodone HCl (Trazodone Hcl 50 Mg Tablet) 50 mg PO BEDTIME MRX1 PRN PRN Reason: Insomnia Allergies Allergies Allergy/AdvReac Type Severity Reaction Status Date / Time Penicillins Allergy Anaphylaxis Verified 01/19/23 23:15 Assessment & Plan Assessment & Plan (1) Schizoaffective disorder: Status: Acute Code(s): F25.9 - Schizoaffective disorder, unspecified (2) Traumatic brain injury: Status: Acute Code(s): S06.9XAA - Unspecified intracranial injury with loss of consciousness status unknown, initial encounter (3) Seizure disorder: Status: Acute Code(s): G40.909 - Epilepsy, unspecified, not intractable, without status epilepticus Plan Pt is a 33-year-old male with a PMH significant for?TBI, cognitive impairment, schizoaffective disorder bipolar type, and with a guardianship and court order for treatment over objection who is admitted to psychiatry unit for a grossly psychotic episode with disorganization, responding to internal stimuli, and disinhibition. Medical consult for admission H&P. ? Mood disorder Plan as per psychiatry Hypothyroidism Continue levothyroxine HTN Acceptable control on current therapies Continue home meds 01/20 - 01/21: Gather collateral information. We will need to get the legal paperwork regarding what can of medications are alternatives on his court order for treatment over objection. In the meantime, we are going to restart clozapine 50 mg p.o. q.a.m. and we start a fast titration of clozapine. He is taking 200 mg p.o. q.h.s. starting today. Since the patient is manic we are lowering his Prozac from 80 mg daily to 40 mg p.o. according to the chart he had a seizure last week and they decided to stop Clozaril. We are starting a low dose of Depakote for seizure precautions and to target kaylah. 01/22: remains disorganized. increase HS clozapine to 250 mg as of tonight. 01/23: perhaps slightly more organized, tired. increase HS clozapine to 300 mg as of tonight. 01/24: bizarre, tangential. increase clozapine to 350 mg as of tonight. 01/25: stable presentation. return clozapine dosing to 400 mg tonight, his usual outpt dose. 01/26: in a good humor but disorganized, echolalia. clozapine now back at home dose. continue current mgmt. 01/27: as for yesterday. continue current mgmt. Reason for continued inpatient stay Substantial Risk for: inability to function and rapid decompensation Time Spent With Patient Time: Total time managing care of this patient today ____ minutes.
[2023-01-28] MEDS: Levothyroxine Sodium 100 MCG TABLET PO (06:53)
[2023-01-28] MEDS: Metoprolol Tartrate 12.5 MG HALFTAB PO ×2 (08:47→21:09)
[2023-01-28] MEDS: FLUoxetine HCl 20 MG CAPSULE 40 MG PO (08:47)
[2023-01-28] MEDS: cloZAPine 25 MG TABLET 50 MG PO (08:48)
[2023-01-28] MEDS: Divalproex Sodium 250 MG TABLET.DR PO ×2 (08:48→21:08)
[2023-01-28 08:50] VITALS: BP 125/82; PULSE 88; RESP 16; TEMP 36.2; O2SAT 98
--- NOTE | 2023-01-28 16:07 | HO.PSYCHPN ---
Subjective Subjective Date of Service: 01/28/23 Reason For Visit: F25.0 Interim History: calm, cooperative. good humored. no questions or concerns. per staff, preoccupied. dep 0, anx 5. Mental Status Exam Mental Status Exam Narrative: up and about the unit, adequately groomed and dressed. cooperative. no PMA/PMR. speech nml rate, nml amount, nml loudness, nml tone, nml latency. thoughts tangential, loose. echolalia. affect full range, normo-intense, non-labile. no SI/SIBI/HI/AVH expressed. Diagnostics Vital Signs (24Hr): Vital Signs - 24 hr 01/27/23 16:16 01/27/23 20:50 01/28/23 08:50 Temperature 97.8 F 97.4 F 97.2 F Pulse Rate 87 103 H 88 Respiratory Rate 16 18 16 Blood Pressure 138/79 124/84 125/82 Pulse Oximetry 97 98 98 Oxygen Delivery Method Room Air Room Air Room Air BMI result Body Mass Index 25.2 Labs 01/21/23 09:14 Medications Medications Current Medications Acetaminophen (Acetaminophen 325 Mg Tablet) 650 mg PO Q6H PRN PRN Reason: Headache/Pain Mild Scale (1-3) Al Hydroxide/Mg Hydroxide (Magnesium Hydrox/Alum Hydrox 30 Ml Oral.Susp) 30 ml PO Q6H PRN PRN Reason: Heartburn/Nausea Clozapine (Clozapine 25 Mg Tablet) 50 mg PO DAILY [facility] Last Admin: 01/28/23 08:48 Dose: 50 mg Clozapine (Clozapine 100 Mg Tablet) 400 mg PO BEDTIME [facility] Last Admin: 01/27/23 21:11 Dose: 400 mg Divalproex Sodium (Divalproex Sodium 250 Mg Tablet.Dr) 250 mg PO BID [facility] Last Admin: 01/28/23 08:48 Dose: 250 mg Fluoxetine HCl (Fluoxetine Hcl 20 Mg Capsule) 40 mg PO DAILY [facility] Last Admin: 01/28/23 08:47 Dose: 40 mg Hydroxyzine HCl (Hydroxyzine Hcl 25 Mg Tablet) 25 mg PO Q6H PRN PRN Reason: Anxiety Levothyroxine Sodium (Levothyroxine Sodium 100 Mcg Tablet) 100 mcg PO DAILY@0600 [facility] Last Admin: 01/28/23 06:53 Dose: 100 mcg Magnesium Hydroxide (Milk Of Magnesia 30 Ml Oral.Susp) 30 ml PO DAILY PRN PRN Reason: Constipation Metoprolol Tartrate (Metoprolol Tartrate 12.5 Mg Halftab) 12.5 mg PO BID [facility]; Protocol Last Admin: 01/28/23 08:47 Dose: 12.5 mg Trazodone HCl (Trazodone Hcl 50 Mg Tablet) 50 mg PO BEDTIME MRX1 PRN PRN Reason: Insomnia Allergies Allergies Allergy/AdvReac Type Severity Reaction Status Date / Time Penicillins Allergy Anaphylaxis Verified 01/19/23 23:15 Assessment & Plan Assessment & Plan (1) Schizoaffective disorder: Status: Acute Code(s): F25.9 - Schizoaffective disorder, unspecified (2) Traumatic brain injury: Status: Acute Code(s): S06.9XAA - Unspecified intracranial injury with loss of consciousness status unknown, initial encounter (3) Seizure disorder: Status: Acute Code(s): G40.909 - Epilepsy, unspecified, not intractable, without status epilepticus Plan Pt is a 33-year-old male with a PMH significant for?TBI, cognitive impairment, schizoaffective disorder bipolar type, and with a guardianship and court order for treatment over objection who is admitted to [facility] psychiatry unit for a grossly psychotic episode with disorganization, responding to internal stimuli, and disinhibition. Medical consult for admission H&P. ? Mood disorder Plan as per psychiatry Hypothyroidism Continue levothyroxine HTN Acceptable control on current therapies Continue home meds 01/20 - 01/21: Gather collateral information. We will need to get the legal paperwork regarding what can of medications are alternatives on his court order for treatment over objection. In the meantime, we are going to restart clozapine 50 mg p.o. q.a.m. and we start a fast titration of clozapine. He is taking 200 mg p.o. q.h.s. starting today. Since the patient is manic we are lowering his Prozac from 80 mg daily to 40 mg p.o. according to the chart he had a seizure last week and they decided to stop Clozaril. We are starting a low dose of Depakote for seizure precautions and to target kaylah. 01/22: remains disorganized. increase HS clozapine to 250 mg as of tonight. 01/23: perhaps slightly more organized, tired. increase HS clozapine to 300 mg as of tonight. 01/24: bizarre, tangential. increase clozapine to 350 mg as of tonight. 01/25: stable presentation. return clozapine dosing to 400 mg tonight, his usual outpt dose. 01/26: in a good humor but disorganized, echolalia. clozapine now back at home dose. continue current mgmt. 01/27: as for yesterday. continue current mgmt. 01/28: as for yesterday. continue current mgmt. Reason for continued inpatient stay Substantial Risk for: inability to function and rapid decompensation Time Spent With Patient Time: Total time managing care of this patient today ____ minutes.
[2023-01-28 20:41] VITALS: BP 133/89; PULSE 93; RESP 19; TEMP 36.7; O2SAT 99
[2023-01-28] MEDS: cloZAPine 100 MG TABLET 400 MG PO (21:08)
[2023-01-28] MEDS: traZODone HCL 50 MG TABLET PO (21:22)
[2023-01-29] MEDS: Levothyroxine Sodium 100 MCG TABLET PO (06:49)
[2023-01-29 07:55] VITALS: BP 113/83; PULSE 88; RESP 16; TEMP 36.2; O2SAT 99
[2023-01-29] MEDS: cloZAPine 25 MG TABLET 50 MG PO (09:02)
[2023-01-29] MEDS: FLUoxetine HCl 20 MG CAPSULE 40 MG PO (09:02)
[2023-01-29] MEDS: Divalproex Sodium 250 MG TABLET.DR PO ×2 (09:02→22:36)
[2023-01-29] MEDS: Metoprolol Tartrate 12.5 MG HALFTAB PO ×2 (09:02→22:36)
--- NOTE | 2023-01-29 14:27 | P.PNPSI_ITS ---
Subjective Subjective Date of Service: 01/29/23 Reason For Visit: F25.0 Interim History: calm, cooperative, pleasantly psychotic. per staff, no SI/HI. pleasant. denies AH. slept after 2100. [facility] not visit. Mental Status Exam Mental Status Exam Narrative: up and about the unit, adequately groomed and dressed. cooperative. no PMA/PMR. speech nml rate, nml amount, nml loudness, nml tone, nml latency. thoughts tangential, loose. echolalia. affect full range, normo-intense, non- labile. no SI/SIBI/HI/AVH expressed. Diagnostics Vital Signs (24Hr): Vital Signs - 24 hr 01/28/23 20:41 01/29/23 07:55 Temperature 98.0 F 97.1 F Pulse Rate 93 88 Respiratory Rate 19 16 Blood Pressure 133/89 113/83 Pulse Oximetry 99 99 Oxygen Delivery Method Room Air Room Air BMI result Body Mass Index 25.2 Labs 01/21/23 09:14 Medications Medications Current Medications Acetaminophen (Acetaminophen 325 Mg Tablet) 650 mg PO Q6H PRN PRN Reason: Headache/Pain Mild Scale (1-3) Al Hydroxide/Mg Hydroxide (Magnesium Hydrox/Alum Hydrox 30 Ml Oral.Susp) 30 ml PO Q6H PRN PRN Reason: Heartburn/Nausea Clozapine (Clozapine 25 Mg Tablet) 50 mg PO DAILY [facility] Last Admin: 01/29/23 09:02 Dose: 50 mg Clozapine (Clozapine 100 Mg Tablet) 400 mg PO BEDTIME [facility] Last Admin: 01/28/23 21:08 Dose: 400 mg Divalproex Sodium (Divalproex Sodium 250 Mg Tablet.) 250 mg PO BID [facility] Last Admin: 01/29/23 09:02 Dose: 250 mg Fluoxetine HCl (Fluoxetine Hcl 20 Mg Capsule) 40 mg PO DAILY [facility] Last Admin: 01/29/23 09:02 Dose: 40 mg Hydroxyzine HCl (Hydroxyzine Hcl 25 Mg Tablet) 25 mg PO Q6H PRN PRN Reason: Anxiety Levothyroxine Sodium (Levothyroxine Sodium 100 Mcg Tablet) 100 mcg PO DAILY@0600 [facility] Last Admin: 01/29/23 06:49 Dose: 100 mcg Magnesium Hydroxide (Milk Of Magnesia 30 Ml Oral.Susp) 30 ml PO DAILY PRN PRN Reason: Constipation Metoprolol Tartrate (Metoprolol Tartrate 12.5 Mg Halftab) 12.5 mg PO BID [facility]; Protocol Last Admin: 01/29/23 09:02 Dose: 12.5 mg Trazodone HCl (Trazodone Hcl 50 Mg Tablet) 50 mg PO BEDTIME MRX1 PRN PRN Reason: Insomnia Last Admin: 01/28/23 21:22 Dose: 50 mg Allergies Allergies Allergy/AdvReac Type Severity Reaction Status Date / Time Penicillins Allergy Anaphylaxis Verified 01/19/23 23:15 Assessment & Plan Assessment & Plan (1) Schizoaffective disorder: Status: Acute Code(s): F25.9 - Schizoaffective disorder, unspecified (2) Traumatic brain injury: Status: Acute Code(s): S06.9XAA - Unspecified intracranial injury with loss of consciousness status unknown, initial encounter (3) Seizure disorder: Status: Acute Code(s): G40.909 - Epilepsy, unspecified, not intractable, without status epilepticus Plan Pt is a 33-year-old male with a PMH significant for?TBI, cognitive impairment, schizoaffective disorder bipolar type, and with a guardianship and court order for treatment over objection who is admitted to [facility] psychiatry unit for a grossly psychotic episode with disorganization, responding to internal stimuli, and disinhibition. Medical consult for admission H&P. ? Mood disorder Plan as per psychiatry Hypothyroidism Continue levothyroxine HTN Acceptable control on current therapies Continue home meds 01/20 - 01/21: Gather collateral information. We will need to get the legal paperwork regarding what can of medications are alternatives on his court order for treatment over objection. In the meantime, we are going to restart clozapine 50 mg p.o. q.a.m. and we start a fast titration of clozapine. He is taking 200 mg p.o. q.h.s. starting today. Since the patient is manic we are lowering his Prozac from 80 mg daily to 40 mg p.o. according to the chart he had a seizure last week and they decided to stop Clozaril. We are starting a low dose of Depakote for seizure precautions and to target kaylah. 01/22: remains disorganized. increase HS clozapine to 250 mg as of tonight. 01/23: perhaps slightly more organized, tired. increase HS clozapine to 300 mg as of tonight. 01/24: bizarre, tangential. increase clozapine to 350 mg as of tonight. 01/25: stable presentation. return clozapine dosing to 400 mg tonight, his usual outpt dose. 01/26: in a good humor but disorganized, echolalia. clozapine now back at home dose. continue current mgmt. 01/27: as for yesterday. continue current mgmt. 01/28: as for yesterday. continue current mgmt. 01/29: stable presentation. continue current mgmt. Reason for continued inpatient stay Substantial Risk for: inability to function and rapid decompensation Time Spent With Patient Time: Total time managing care of this patient today ____ minutes.
[2023-01-29 20:01] VITALS: BP 169/87; PULSE 119; RESP 18; TEMP 36.6; O2SAT 98
[2023-01-29 22:35] VITALS: BP 138/83; PULSE 120
[2023-01-29] MEDS: hydrOXYzine HCL 25 MG TABLET PO (22:36)
[2023-01-29] MEDS: cloZAPine 100 MG TABLET 400 MG PO (22:36)
[2023-01-29] MEDS: traZODone HCL 50 MG TABLET PO (22:36)
[2023-01-30] MEDS: Levothyroxine Sodium 100 MCG TABLET PO (06:51)
[2023-01-30 07:55] VITALS: BP 123/76; PULSE 92; RESP 16; TEMP 36.1; O2SAT 99
[2023-01-30] MEDS: Divalproex Sodium 250 MG TABLET.DR PO ×2 (10:01→20:45)
[2023-01-30] MEDS: Metoprolol Tartrate 12.5 MG HALFTAB PO ×2 (10:01→20:45)
[2023-01-30] MEDS: cloZAPine 25 MG TABLET 50 MG PO (10:01)
[2023-01-30] MEDS: FLUoxetine HCl 20 MG CAPSULE 40 MG PO (10:01)
--- NOTE | 2023-01-30 13:57 | P.PNPSI_ITS ---
Subjective Subjective Date of Service: 01/30/23 Reason For Visit: F25.0 Interim History: feeling well, no complaints. pleasant. informed of longterm staff's plan to visit tomorrow. per staff, meds and meals compliant. sometimes his heart races as do his thoughts. +RIS. slept well overnight. Mental Status Exam Mental Status Exam Narrative: up and about the unit, adequately groomed and dressed. cooperative. no PMA/PMR. speech nml rate, nml amount, nml loudness, nml tone, nml latency. thoughts more organized, less loose/tangential. affect full range, normo- intense, non-labile. no SI/SIBI/HI/AVH expressed. Diagnostics Vital Signs (24Hr): Vital Signs - 24 hr 01/29/23 20:01 01/29/23 22:35 01/30/23 07:55 Temperature 97.9 F 97.0 F Pulse Rate 119 H 120 H 92 Respiratory Rate 18 16 Blood Pressure 169/87 H 138/83 123/76 Pulse Oximetry 98 99 Oxygen Delivery Method Room Air Room Air BMI result Body Mass Index 25.2 Labs 01/21/23 09:14 Medications Medications Current Medications Acetaminophen (Acetaminophen 325 Mg Tablet) 650 mg PO Q6H PRN PRN Reason: Headache/Pain Mild Scale (1-3) Al Hydroxide/Mg Hydroxide (Magnesium Hydrox/Alum Hydrox 30 Ml Oral.Susp) 30 ml PO Q6H PRN PRN Reason: Heartburn/Nausea Clozapine (Clozapine 25 Mg Tablet) 50 mg PO DAILY [facility] Last Admin: 01/30/23 10:01 Dose: 50 mg Clozapine (Clozapine 100 Mg Tablet) 400 mg PO BEDTIME [facility] Last Admin: 01/29/23 22:36 Dose: 400 mg Divalproex Sodium (Divalproex Sodium 250 Mg Tablet.) 250 mg PO BID [facility] Last Admin: 01/30/23 10:01 Dose: 250 mg Fluoxetine HCl (Fluoxetine Hcl 20 Mg Capsule) 40 mg PO DAILY [facility] Last Admin: 01/30/23 10:01 Dose: 40 mg Hydroxyzine HCl (Hydroxyzine Hcl 25 Mg Tablet) 25 mg PO Q6H PRN PRN Reason: Anxiety Last Admin: 01/29/23 22:36 Dose: 25 mg Levothyroxine Sodium (Levothyroxine Sodium 100 Mcg Tablet) 100 mcg PO DAILY@0600 [facility] Last Admin: 01/30/23 06:51 Dose: 100 mcg Magnesium Hydroxide (Milk Of Magnesia 30 Ml Oral.Susp) 30 ml PO DAILY PRN PRN Reason: Constipation Metoprolol Tartrate (Metoprolol Tartrate 12.5 Mg Halftab) 12.5 mg PO BID [facility]; Protocol Last Admin: 01/30/23 10:01 Dose: 12.5 mg Trazodone HCl (Trazodone Hcl 50 Mg Tablet) 50 mg PO BEDTIME MRX1 PRN PRN Reason: Insomnia Last Admin: 01/29/23 22:36 Dose: 50 mg Allergies Allergies Allergy/AdvReac Type Severity Reaction Status Date / Time Penicillins Allergy Anaphylaxis Verified 01/19/23 23:15 Assessment & Plan Assessment & Plan (1) Schizoaffective disorder: Status: Acute Code(s): F25.9 - Schizoaffective disorder, unspecified (2) Traumatic brain injury: Status: Acute Code(s): S06.9XAA - Unspecified intracranial injury with loss of consciousness status unknown, initial encounter (3) Seizure disorder: Status: Acute Code(s): G40.909 - Epilepsy, unspecified, not intractable, without status epilepticus Plan Pt is a 33-year-old male with a PMH significant for?TBI, cognitive impairment, schizoaffective disorder bipolar type, and with a guardianship and court order for treatment over objection who is admitted to psychiatry unit for a grossly psychotic episode with disorganization, responding to internal stimuli, and disinhibition. Medical consult for admission H&P. ? Mood disorder Plan as per psychiatry Hypothyroidism Continue levothyroxine HTN Acceptable control on current therapies Continue home meds 01/20 - 01/21: Gather collateral information. We will need to get the legal paperwork regarding what can of medications are alternatives on his court order for treatment over objection. In the meantime, we are going to restart clozapine 50 mg p.o. q.a.m. and we start a fast titration of clozapine. He is taking 200 mg p.o. q.h.s. starting today. Since the patient is manic we are lowering his Prozac from 80 mg daily to 40 mg p.o. according to the chart he had a seizure last week and they decided to stop Clozaril. We are starting a low dose of Depakote for seizure precautions and to target kaylah. 01/22: remains disorganized. increase HS clozapine to 250 mg as of tonight. 01/23: perhaps slightly more organized, tired. increase HS clozapine to 300 mg as of tonight. 01/24: bizarre, tangential. increase clozapine to 350 mg as of tonight. 01/25: stable presentation. return clozapine dosing to 400 mg tonight, his usual outpt dose. 01/26: in a good humor but disorganized, echolalia. clozapine now back at home dose. continue current mgmt. 01/27: as for yesterday. continue current mgmt. 01/28: as for yesterday. continue current mgmt. 01/29: stable presentation. continue current mgmt. 01/30: stable presentation. continue current mgmt. longterm staff to visit tomorrow. Reason for continued inpatient stay Substantial Risk for: inability to function and rapid decompensation Time Spent With Patient Time: Total time managing care of this patient today ____ minutes.
[2023-01-30 20:16] VITALS: BP 152/84; PULSE 98; RESP 16; TEMP 36.4; O2SAT 100
[2023-01-30] MEDS: cloZAPine 100 MG TABLET 400 MG PO (20:44)
[2023-01-30] MEDS: Acetaminophen 325 MG TABLET 650 MG PO (22:30)
[2023-01-31] MEDS: Levothyroxine Sodium 100 MCG TABLET PO (06:35)
[2023-01-31 08:00] VITALS: BP 124/80; PULSE 92; RESP 16; TEMP 36.2; O2SAT 100
[2023-01-31] MEDS: Metoprolol Tartrate 12.5 MG HALFTAB PO ×2 (08:47→21:07)
[2023-01-31] MEDS: FLUoxetine HCl 20 MG CAPSULE 40 MG PO (08:47)
[2023-01-31] MEDS: Divalproex Sodium 250 MG TABLET.DR PO ×2 (08:47→21:07)
[2023-01-31] MEDS: cloZAPine 25 MG TABLET 50 MG PO (08:47)
--- NOTE | 2023-01-31 12:53 | P.PNPSI_ITS ---
Subjective Subjective Date of Service: 01/31/23 Reason For Visit: F25.0 Interim History: met with patient; discussed with team Patient friendly and cooperative on approach, sitting in the day room watching television. Patient reports that he is doing well says he does not need much. He is not sure why he was brought to the hospital in the 1st place but feels good and is looking forward to discharge. He reports he talked with the manager labor delivery at the nursing home he was living at and found out he is allowed to return, which he is eager to do. Patient reports sleeping well. Staff reports intermittently internally preoccupied but denies AVH. Mental Status Exam Mental Status Exam Narrative: up and about the unit, adequately groomed and dressed. cooperative. no PMA/PMR. speech nml rate, nml amount, nml loudness, nml tone, nml latency. thought process organized, linear; Thought content on discharge; affect full range, normo-intense, non-labile. no SI/SIBI/HI; intermittently internally preoccupied but denies AVH. No delusional thinking expressed Diagnostics Vital Signs (24Hr): Vital Signs - 24 hr 01/30/23 20:16 01/31/23 08:00 Temperature 97.5 F 97.1 F Pulse Rate 98 92 Respiratory Rate 16 16 Blood Pressure 152/84 H 124/80 Pulse Oximetry 100 100 Oxygen Delivery Method Room Air Room Air BMI result Body Mass Index 25.2 Labs 01/21/23 09:14 Medications Medications Current Medications Acetaminophen (Acetaminophen 325 Mg Tablet) 650 mg PO Q6H PRN PRN Reason: Headache/Pain Mild Scale (1-3) Last Admin: 01/30/23 22:30 Dose: 650 mg Al Hydroxide/Mg Hydroxide (Magnesium Hydrox/Alum Hydrox 30 Ml Oral.Susp) 30 ml PO Q6H PRN PRN Reason: Heartburn/Nausea Clozapine (Clozapine 25 Mg Tablet) 50 mg PO DAILY [facility] Last Admin: 01/31/23 08:47 Dose: 50 mg Clozapine (Clozapine 100 Mg Tablet) 400 mg PO BEDTIME [facility] Last Admin: 01/30/23 20:44 Dose: 400 mg Divalproex Sodium (Divalproex Sodium 250 Mg Tablet.) 250 mg PO BID [facility] Last Admin: 01/31/23 08:47 Dose: 250 mg Fluoxetine HCl (Fluoxetine Hcl 20 Mg Capsule) 40 mg PO DAILY [facility] Last Admin: 01/31/23 08:47 Dose: 40 mg Hydroxyzine HCl (Hydroxyzine Hcl 25 Mg Tablet) 25 mg PO Q6H PRN PRN Reason: Anxiety Last Admin: 01/29/23 22:36 Dose: 25 mg Levothyroxine Sodium (Levothyroxine Sodium 100 Mcg Tablet) 100 mcg PO DAILY@0600 [facility] Last Admin: 01/31/23 06:35 Dose: 100 mcg Magnesium Hydroxide (Milk Of Magnesia 30 Ml Oral.Susp) 30 ml PO DAILY PRN PRN Reason: Constipation Metoprolol Tartrate (Metoprolol Tartrate 12.5 Mg Halftab) 12.5 mg PO BID [facility]; Protocol Last Admin: 01/31/23 08:47 Dose: 12.5 mg Trazodone HCl (Trazodone Hcl 50 Mg Tablet) 50 mg PO BEDTIME MRX1 PRN PRN Reason: Insomnia Last Admin: 01/29/23 22:36 Dose: 50 mg Allergies Allergies Allergy/AdvReac Type Severity Reaction Status Date / Time Penicillins Allergy Anaphylaxis Verified 01/19/23 23:15 Assessment & Plan Assessment & Plan (1) Schizoaffective disorder: Status: Acute Code(s): F25.9 - Schizoaffective disorder, unspecified (2) Traumatic brain injury: Status: Acute Code(s): S06.9XAA - Unspecified intracranial injury with loss of consciousness status unknown, initial encounter (3) Seizure disorder: Status: Acute Code(s): G40.909 - Epilepsy, unspecified, not intractable, without status epilepticus Plan Pt is a 33-year-old male with a PMH significant for?TBI, cognitive impairment, schizoaffective disorder bipolar type, and with a guardianship and court order for treatment over objection who is admitted to psychiatry unit for a grossly psychotic episode with disorganization, responding to internal stimuli, and disinhibition. Medical consult for admission H&P. ? Mood disorder Plan as per psychiatry Hypothyroidism Continue levothyroxine HTN Acceptable control on current therapies Continue home meds 01/20 - 01/21: Gather collateral information. We will need to get the legal paperwork regarding what can of medications are alternatives on his court order for treatment over objection. In the meantime, we are going to restart clozapine 50 mg p.o. q.a.m. and we start a fast titration of clozapine. He is taking 200 mg p.o. q.h.s. starting today. Since the patient is manic we are lowering his Prozac from 80 mg daily to 40 mg p.o. according to the chart he had a seizure last week and they decided to stop Clozaril. We are starting a low dose of Depakote for seizure precautions and to target kaylah. 01/22: remains disorganized. increase HS clozapine to 250 mg as of tonight. 01/23: perhaps slightly more organized, tired. increase HS clozapine to 300 mg as of tonight. 01/24: bizarre, tangential. increase clozapine to 350 mg as of tonight. 01/25: stable presentation. return clozapine dosing to 400 mg tonight, his usual outpt dose. 01/26: in a good humor but disorganized, echolalia. clozapine now back at home dose. continue current mgmt. 01/27: as for yesterday. continue current mgmt. 01/28: as for yesterday. continue current mgmt. 01/29: stable presentation. continue current mgmt. 10: stable presentation. continue current mgmt. nursing home staff to visit tomorrow. 01/31: Continue current treatment plan. Said he had a good visit with nursing home staff and that he can return Patient educated on: diagnosis Informed Consent: does not understand Reason for continued inpatient stay Substantial Risk for: med/psych decompensation Time Spent With Patient Time: Total time managing care of this patient today ____ minutes.
[2023-01-31 20:00] VITALS: BP 131/91; PULSE 89; RESP 18; TEMP 36.2; O2SAT 100
[2023-01-31] MEDS: cloZAPine 100 MG TABLET 400 MG PO (21:07)
[2023-02-01] MEDS: Levothyroxine Sodium 100 MCG TABLET PO (06:37)
[2023-02-01 07:47] VITALS: BP 122/76; PULSE 88; RESP 16; TEMP 36.2; O2SAT 98; BMI 25.3
[2023-02-01] MEDS: Metoprolol Tartrate 12.5 MG HALFTAB PO ×2 (08:29→21:42)
[2023-02-01] MEDS: cloZAPine 25 MG TABLET 50 MG PO (08:30)
[2023-02-01] MEDS: Divalproex Sodium 250 MG TABLET.DR PO ×2 (08:30→21:41)
[2023-02-01] MEDS: FLUoxetine HCl 20 MG CAPSULE 40 MG PO (08:30)
--- NOTE | 2023-02-01 15:24 | PM.PSYDC ---
DS: Providers Provider Date of Service: 02/01/23 Date of admission: 01/19/23 20:42 Primary care physician: Unknown Physician Consults: 01/20/23 06:35 Consult to Hospitalist Routine Comment: Consulting Provider: Hospitalist Reason For Exam: direct admission DS: Diagnosis Discharge Diagnosis (1) Schizoaffective disorder: Status: Acute (2) Traumatic brain injury: Status: Acute (3) Seizure disorder: Status: Acute DS: Medications Discharge Medications Home Medications: Home Medications Medication Instructions Recorded Confirmed clozapine 200 mg tablet 400 mg PO BEDTIME 01/20/23 01/20/23 clozapine 50 mg tablet 50 mg PO QAM 01/20/23 01/20/23 fluoxetine 40 mg capsule 80 mg PO QAM 01/20/23 01/20/23 levothyroxine 100 mcg tablet 100 mcg PO DAILY 01/20/23 01/20/23 metoprolol tartrate 25 mg tablet 12.5 mg PO BID 01/20/23 01/20/23 Previous Rx's Medication Instructions Recorded divalproex 250 mg tablet,delayed 250 mg PO BID 30 days #60 tabs 02/01/23 release Mental Status Exam Mental Status Exam Narrative: up and about the unit, adequately groomed and dressed. cooperative. no PMA/PMR. speech nml rate, nml amount, nml loudness, nml tone, nml latency. thoughts more organized, less loose/tangential. affect full range, normo-intense, non-labile. mood fine. no SI/SIBI/HI/AVH expressed. Data Data Completed and Pending Completed studies during hospitalization [Text1]: 01/26/23 09:03 Absolute Neuts (auto) 5.0 Hold Green Top See Note DS: Summary Hospital Course Hospital Course: per 01/20 admission note: The patient is a 33-year-old descent male, single, with no children, chronically mentally ill with a diagnosis of schizoaffective disorder bipolar type, with a guardianship and a court order for treatment over objection on Clozaril. He also carries a diagnosis of traumatic brain injury. The patient usually resides at a [facility]NOTE 3[facility] long-term but 1 week ago the patient had a seizure. His Clozaril was stopped and since then his mother pick him up from the long-term since she was worried that he could eloped. The patient was grossly psychotic, he decompensated very fast and his mother call 911 asking for crisis assessment. The patient was assessed by crisis and transferring initially to the emergency room of [facility]. He was medically cleared, reassessed by crisis and transferring to this facility for psychiatric stabilization. Apparently, the patient is fairly stable on Clozaril 50 mg p.o. q.a.m. and 400 mg p.o. q.h.s.. His Clozaril was stopped at least 5 days ago and he was seen grossly disorganized, responding to internal stimuli, with word salad, illogical but easily redirectable. Also he looks manic with disinhibited mood, singing and with an expansive mood. According to the report of the long-term staff, the patient had been abusing more cannabis recently. At the moment of the admission, we do not have his court order for treatment over objection, we only have part of the paperwork but there was no specifications of the maximum dose of Clozaril. He was agreeable to restart medications. I offer him a conditional voluntary and he signed it, he stated he wants to be in the hospital and he could understand Alcantar warning. Past Psychiatric History: As per crisis report he has prior admissions into the hospital for psychiatric admission. His [facility] case managed and he lives in a long-term. Medical Evaluation Reviewed: Yes PMFSH Family History: Denies Social History: Chronically mentally ill, he lives in a long-term, he has [facility] case management services. Even though he has a family who is involved and looks after him. Substance History: History of cannabis abuse Trauma History: Unknown, the patient is a very poor historian Precis: Pt is a 33-year-old male with a PMH significant for?TBI, cognitive impairment, schizoaffective disorder bipolar type, and with a guardianship and court order for treatment over objection who is admitted to M3 psychiatry unit for a grossly psychotic episode with disorganization, responding to internal stimuli, and disinhibition. Medical consult for admission H&P. ? Mood disorder Plan as per psychiatry Hypothyroidism Continue levothyroxine HTN Acceptable control on current therapies Continue home meds 01/20 - 01/21: Gather collateral information. We will need to get the legal paperwork regarding what can of medications are alternatives on his court order for treatment over objection. In the meantime, we are going to restart clozapine 50 mg p.o. q.a.m. and we start a fast titration of clozapine. He is taking 200 mg p.o. q.h.s. starting today. Since the patient is manic we are lowering his Prozac from 80 mg daily to 40 mg p.o. according to the chart he had a seizure last week and they decided to stop Clozaril. We are starting a low dose of Depakote for seizure precautions and to target kaylah. 01/22: remains disorganized. increase HS clozapine to 250 mg as of tonight. 01/23: perhaps slightly more organized, tired. increase HS clozapine to 300 mg as of tonight. 01/24: bizarre, tangential. increase clozapine to 350 mg as of tonight. 01/25: stable presentation. return clozapine dosing to 400 mg tonight, his usual outpt dose. 01/26: in a good humor but disorganized, echolalia. clozapine now back at home dose. continue current mgmt. 01/27: as for yesterday. continue current mgmt. 01/28: as for yesterday. continue current mgmt. 01/29: stable presentation. continue current mgmt. 01/30: stable presentation. continue current mgmt. long-term staff to visit tomorrow. 01/31: Continue current treatment plan. Said he had a good visit with long-term staff and that he can return. 02/01: stable. planning to discharge tomorrow. meds reviewed, reconciled, prescribed. aftercare in place. 02/02: discharged to long-term as per plan. stable. Time Spent with Patient Time attestation: Total time managing care of this patient today ____ minutes. Time spent: Greater than 30 minutes Discharge Plan Discharge Anticipated Discharge Date/Time: 02/02/23 12:00 Patient Disposition: Home, Self-Care Discharge Diagnosis: Schizoaffective Disorder Seizure Disorder s/p TBI Referrals: Physician,Unknown J [Primary Care Provider] - 1 Week Discharge Medications: New divalproex 250 mg Tablet,Delayed Release (Dr/Ec) 250 mg PO BID 30 Days Qty: 60 0RF fluoxetine 20 mg Capsule 40 mg PO DAILY Qty: 0 0RF Continued clozapine 200 mg tablet 400 mg PO BEDTIME levothyroxine 100 mcg tablet 100 mcg PO DAILY metoprolol tartrate 25 mg tablet 12.5 mg PO BID clozapine 50 mg tablet 50 mg PO QAM Discontinued fluoxetine 40 mg capsule 80 mg PO QAM Discharge Orders: Discharge Order (Routine); Ordered 02/02/23 Ordered By: José Miguel Perez Diet: Advance to usual diet Activity on Discharge: As tolerated Stand Alone Forms: Patient Portal Discharge page, Community Support Care Plan Goals: remain safe and stable in the outpatient treatment setting Health Concerns: none Plan of Treatment: take medications as prescribed, attend appointments as scheduled Assessment: not at imminent risk of harm to self or others Discharge Date/Time: 02/02/23 12:15
[2023-02-01 21:30] VITALS: BP 123/73; PULSE 97; TEMP 36.3; O2SAT 100
[2023-02-01] MEDS: cloZAPine 100 MG TABLET 400 MG PO (21:41)
[2023-02-01] MEDS: hydrOXYzine HCL 25 MG TABLET PO (21:41)
[2023-02-02 09:05] VITALS: BP 104/74; PULSE 90; RESP 16; TEMP 36.2; O2SAT 100
[2023-02-02] MEDS: Levothyroxine Sodium 100 MCG TABLET PO (09:05)
[2023-02-02] MEDS: Divalproex Sodium 250 MG TABLET.DR PO (09:05)
[2023-02-02] MEDS: FLUoxetine HCl 20 MG CAPSULE 40 MG PO (09:06)
[2023-02-02] MEDS: cloZAPine 25 MG TABLET 50 MG PO (09:06)
[2023-02-02] MEDS: Metoprolol Tartrate 12.5 MG HALFTAB PO (09:18)
== END 2023-02-02 12:15 | disposition home or self-care (01) | DRG 750 ==
PROVIDERS: Psychiatry & Neurology Psychiatry; Admitting Provider Psychiatry & Neurology Psychiatry; Visit Provider Psychiatry & Neurology Psychiatry
DX: F25.9 Schizoaffective disorder, unspecified (principal); G40.909 Epilepsy, unspecified, not intractable, without status epilepticus; E03.9 Hypothyroidism, unspecified; I10 Essential (primary) hypertension; F17.210 Nicotine dependence, cigarettes, uncomplicated; Z59.02 Unsheltered homelessness; Z71.6 Tobacco abuse counseling; Z91.148 Patient's other noncompliance with medication regimen for other reason; Z87.820 Personal history of traumatic brain injury; Z79.890 Hormone replacement therapy; Z79.899 Other long term (current) drug therapy
CPT/HCPCS: 36415; 80053; 80061; 85048

== ENCOUNTER → 2023-01-19 20:42 | Outpatient (BNV) | payer MEDICAID, OTHER, SELFPAY | PROVIDERS: Admitting Provider Psychiatry & Neurology Psychiatry; Visit Provider Psychiatry & Neurology Psychiatry | DX: F25.0 Schizoaffective disorder, bipolar type (principal); S06.9XAA Unspecified intracranial injury with loss of consciousness status unknown, initial encounter; G40.909 Epilepsy, unspecified, not intractable, without status epilepticus | CPT/HCPCS: 99231; 99232 ==

== ENCOUNTER → 2023-01-19 20:42 | Outpatient (BNV) | payer MEDICAID, SELFPAY | PROVIDERS: Admitting Provider Psychiatry & Neurology Psychiatry; Visit Provider Student in an Organized Health Care Education/Training Program | DX: Z00.8 Encounter for other general examination (principal) | CPT/HCPCS: 99222 ==

== ENCOUNTER 2024-09-23 12:51 | Inpatient (IN) | payer OTHER, SELFPAY ==
--- NOTE | 2024-09-23 | ECG_ITS ---
Test Reason : check qt Blood Pressure : */* mmHG Vent. Rate : 92 BPM Atrial Rate : 92 BPM P-R Int : 162 ms QRS Dur : 92 ms QT Int : 354 ms P-R-T Axes : 38 31 27 degrees QTcB Int : 437 ms Normal sinus rhythm Normal ECG No previous ECGs available Referred By: Luz Simon Electronically Signed By: HUGO BURGOS MD
[2024-09-23 14:08] VITALS: BP 125/86; PULSE 102; TEMP 36.4; O2SAT 97; BMI 29.5
--- NOTE | 2024-09-23 15:08 | P.CONHOSP_ITS ---
History of Present Illness Data of Consult Service Date: 09/23/24 Primary Care Provider: Unknown Physician HPI Reason for consult: Medical H and P 34-year-old male with a PMH significant for chronic back pain, HTN, s chizoaffective disorder, bipolar disorder, depression, anxiety, hypothyroidism admitted to inpatient psychiatry after concerns from his mother that his mind is not there and he presented to [facility]. Patient takes Clozaril, reports recent med changes and reportedly has been declining, resulting in him running away from home. Patient reports that he has had increased stress at home and a strained relationship with his mother. Medical consult for admission H&P. ?Pt seen and evaluated in room where he is calm and cooperative, smiling and answering questions appropriately. He denies any significant PMC does not have any acute medical complaints at this time. His labs were reviewed revealing slightly elevated WBC. Reports a history of hypothyroidism, TSH in ED was 3.13 within normal. QTC in ED 448. Repeat in am. Review of Systems Review of Systems: Denies any shortness of breath, chest pain, dizziness, lightheadedness, abdominal pain or discomfort, nausea vomiting or diarrhea [facility] Medical History (Updated 02/10/23 @ 00:03 by Arcelia Matson) Medical clearance for psychiatric admission Social History Household Members: Family and None Household Members Other:: Used to live in house with mom and 2 brothers but recently left /homeless Housing: Homeless Housing Other:: Used to live in house with mom and 2 brothers but recently left /homeless Do you presently have visiting nurse or other home services: Yes Patient Tobacco Use Status: Current someday Tobacco user Tobacco use type: Cigarette Smoked in Last 30 Days: Yes e-Cigarette/Vaping Use: Currently Using Patient Interested in Nicotine Replacement: No Patient Given Instructions on How to Stop Smoking: Yes Date Education Initiated: 09/23/24 Second Hand Smoke Exposure: No Substance Use Type: Marijuana Currently Displaying Signs/Symptoms of Drug Intoxication Withdrawal: No Have you been hit, kicked, punched, or otherwise hurt by someone within the past year? If so, by whom?: No Do you feel safe in your current relationship?: No Current Relationship Is there a partner from a previous relationship who is making you feel unsafe now?: No Are you made to feel afraid or neglected: No Spiritual Healthcare Practices: Yoga, praying (spiritual, non gnosticism) Temple Healthcare Practices: n/a Cultural Healthcare Practices: none Advance Directives: No Advance Directives Information Provided: No Do you have thoughts of harming others: None Do you have a plan to hurt others: No Plan Recently lost weight without trying: No How much weight loss: Not applicable Eating poorly because of decreased appetite: No Nutrition screen score: 0 Nutrition Risks: No Nutritional Risk Poor oral hygiene: No service: No Sexual orientation: Decline to Answer Meds Allergies Allergy/AdvReac Type Severity Reaction Status Date / Time Penicillins Allergy Anaphylaxis Verified 01/19/23 23:15 Active Medications: Current Medications Acetaminophen (Acetaminophen 325 Mg Tablet) 650 mg PO Q6H PRN PRN Reason: Headache/Pain, Scale 1-10 Al Hydroxide/Mg Hydroxide (Magnesium Hydrox/Alum Hydrox 30 Ml Oral.Susp) 30 ml PO Q6H PRN PRN Reason: Heartburn/Nausea Hydroxyzine HCl (Hydroxyzine Hcl 25 Mg Tablet) 25 mg PO Q6H PRN PRN Reason: mild anxiety Magnesium Hydroxide (Milk Of Magnesia 30 Ml Oral.Susp) 30 ml PO DAILY PRN PRN Reason: Constipation Nicotine (Nicotine 21 Mg Patch.Td24) 21 mg TRANSDERMA DAILY PRN PRN Reason: smoking cessation Olanzapine (Olanzapine 5 Mg Tablet) 5 mg PO TID PRN PRN Reason: agitation Trazodone HCl (Trazodone Hcl 50 Mg Tablet) 50 mg PO BEDTIME MRX1 PRN PRN Reason: Insomnia Home Medications ?Medication ?Instructions ?Recorded ?Confirmed ?Last Taken ?Type clozapine 200 mg tablet 400 mg PO BEDTIME 01/20/23 01/20/23 Unknown History clozapine 50 mg tablet 50 mg PO QAM 01/20/23 01/20/23 Unknown History levothyroxine 100 mcg tablet 100 mcg PO DAILY 01/20/23 01/20/23 Unknown History metoprolol tartrate 25 mg tablet 12.5 mg PO BID 01/20/23 01/20/23 Unknown History Physical Exam Vital Signs and Narrative: Vital Signs: Last Vital Signs Temp 97.5 F 09/23/24 14:08 Pulse 102 H 09/23/24 14:08 BP 125/86 09/23/24 14:08 Pulse Ox 97 09/23/24 14:08 O2 Del Method Room Air 09/23/24 14:08 BMI result Body Mass Index 29.5 Alert and oriented X3, able to give good history. Neuro: CN II-X11 intact, no deficits, visual acuity intact EYES: PERRLA, EOM intact ENT: hearing intact, uvula midline, lips moist Cardiac: S1 S2 RRR, no murmur, no JVD, no edema in Lower ext Pulmonary: lungs clear to auscultation, No increased WOB. Abdominal: BS active in all 4 quadrants, no guarding or tenderness MSK: Strength 5/5 upper and lower extremities : Deferred Extremities: no edema in lower extremities Psych: Calm, appropriate at time of visit Skin: Warm and dry, Intact Assessment and Plan (1) Medical clearance for psychiatric admission: Status: Inactive Plan 34-year-old male with a PMH significant for chronic back pain, schizoaffective disorder, bipolar disorder, depression, anxiety, hypothyroidism admitted to inpatient psychiatry after concerns from his mother that his mind is not there and he presented to [facility].. ? Mood disorder/Schizoaffective DO/Anxiety/Depression Plan as per psychiatry Hypothyroidism Continue levothyroxine at 100 mcg daily TSH WNL 3.13. HTN Continue Metoprolol 12.5 mgs BID Thank you for allowing us to participate in the care of this patient. Signing off at this time. Please let us know if there are any acute complaints or questions.
--- NOTE | 2024-09-23 18:43 | PC.ADMIT ---
Pt is a 34-year-old male who arrived on M5 ~13:00 from [facility] for the treatment of disorganized behavior/decompensation. Pt is on a CV, he has 2 healthcare proxies (mother and brother - documentation is under legals). Per crisis assessment pt has PMH of hypothyroidism and chronic back pain. He is on metoprolol but there is no mention of HTN in his file, VSS. Pt has past diagnoses of Schizophrenia, Schizoaffective D/o, Bipolar d/o and (?) developmental delay. During admission assessment pt was cooperative, bright, and talkative. Pt revealed poor insight into mental health and why he is in the hospital. Stated ?I don?t need any medication, my prescriber Dr Means wants to take me off everything.? Pt also stated ?I lived with my mom but for the last 3 days I?m homeless, she was too much to deal with so I decided to just run away from home, I am 34years old so it only makes sense?. Pt requisition housing - saying ?I want to live in an apartment by myself if you can help me get one. But I don?t want a care home, I didn?t feel safe there before, I felt like people were spying on me?. Pt stated other similar statements expressing paranoia and suspiciousness. Pt denied anxiety/depression/SI/HI. Pt denied AH/VH but when asked about his sleep he stated ?I couldn?t fall asleep because of the ambient noises in the background?. Pt requested help filling out his menu stating ?I need help because sometimes I don?t understand?. Utox (+) for cannabis, pt endorsed cannabis use via smoking 1-2grams daily. He declined addiction consult. Reported some nicotine use ?occasionally? >1 pack/ month, declined NRT intervention.??? Pt is on Chlozoril - last dose was this morning @ 9:20 am
--- NOTE | 2024-09-23 19:07 | ECG_ITS ---
Test Reason : CK QT Blood Pressure : */* mmHG Vent. Rate : 100 BPM Atrial Rate : 100 BPM P-R Int : 168 ms QRS Dur : 84 ms QT Int : 344 ms P-R-T Axes : 34 20 24 degrees QTcB Int : 443 ms Normal sinus rhythm Normal ECG When compared with ECG of 23-Sep-2024 15:39, No significant change was found Referred By: Catrachito Ortiz Electronically Signed By: HUGO BURGOS MD
[2024-09-23 20:00] VITALS: BP 136/85; PULSE 106; TEMP 36.9; O2SAT 97
[2024-09-23] MEDS: Metoprolol Tartrate 12.5 MG HALFTAB PO (21:34)
[2024-09-23] MEDS: Calcium Carbonate 750 MG TAB.CHEW 500 MG PO (21:43)
[2024-09-24] MEDS: Levothyroxine Sodium 100 MCG TABLET PO ×2 (07:04→14:08)
[2024-09-24 08:09] LABS: MANUAL DIFF FLAG NO
[2024-09-24 08:11] LABS: Basophils Absolute Auto 0.1 X10*3/uL (0.0-0.2); Basophils Percent Auto 0.9 % (0-2); Eosinophils Absolute Auto 0.2 X10*3/uL (0.0-0.4); Eosinophils Percent Auto 2.4 % (0-4); Hematocrit 46.1 % (42.0-52.0); Hemoglobin 15.3 g/dl (14.0-18.0); Imm Gran Abs Auto 0.04 X10*3/uL (0.00-0.03); Imm Gran Pct Auto 0.5 % (0.0-0.4); Lymphocytes Absolute Auto 2.2 X10*3/uL (1.2-4.9); Lymphocytes Percent Auto 28.7 % (20-40); Mean Corpuscular HGB Conc 33.2 g/dl (31.0-36.0); Mean Corpuscular Volume 90.4 fL (80.0-98.0); Mean Platelet Volume 10.6 fL (9.4-12.4); Monocytes Absolute Auto 0.6 X10*3/uL (0.1-1.2); Monocytes Percent Auto 8.2 % (2-11); Neutrophils Absolute Auto 4.6 x10*3/uL (2.0-8.3); Neutrophils Percent Auto 59.3 % (45-73); Platelet Count 246 X10*3/uL (160-400); White Blood Count 7.8 X10*3/uL (4.8-10.8)
[2024-09-24 08:35] LABS: Alanine Aminotransferase 58 U/L (0-40); Albumin Level 4.8 g/dL (3.5-5.0); Alkaline Phosphatase 101 U/L (39-117); Anion Gap 13 (12-20); Aspartate Amino Transferase 34 U/L (5-37); Bilirubin Total 0.5 mg/dL (0.0-1.0); Blood Urea Nitrogen 16 mg/dL (9-16); Calcium 9.6 mg/dL (8.4-10.2); Carbon Dioxide 29 mmol/L (22-29); Chloride 104 mmol/L (96-108); Cholesterol 237 mg/dL (<200); Creatinine Clr Calc Pharmacy 110.6; Estimated Glomerular Filt Rate > 60; Glucose Random 100 mg/dL (60-115); HDL Cholesterol 33 mg/dL (>40); LDL Cholesterol Calculated 170 mg/dL (<100); Sodium 142 mmol/L (135-145); Total Protein 7.4 g/dL (6.5-8.0); Triglycerides 171 mg/dL (<150)
[2024-09-24 08:36] LABS: Estimated Average Glucose 108 mg/dL; Hemoglobin A1C 141.1197 umol/L; Hemoglobin A1c % 5.4 % (<6.0); Total Hemoglobin (HGBA1C) 3928.0437 umol/L
[2024-09-24] MEDS: Metoprolol Tartrate 12.5 MG HALFTAB PO ×2 (08:42→20:52)
[2024-09-24 08:52] LABS: TSH reflex Free T4 4.77 uIU/mL (0.32-4.0)
[2024-09-24 09:24] LABS: Free T4 (Free Thyroxine) 1.12 ng/dL (0.71-1.85)
--- NOTE | 2024-09-24 10:13 | P.HPPS_ITS ---
HPI Date of Service: 09/24/24 Chief Complaint: disorganized Sources of Information: patient interviewed, chart reviewed and crisis/core team assessment reviewed HPI Subjective Notes: Alcantar Warning, Conditional Voluntary and 3 Day Narrative: pt seen on 09/23/24 Patient is a 34-year-old male with history of schizoaffective disorder, bipolar type, TBI, past psychiatric admissions including Vraylar who presents for some reportedly disorganized behavior in the community. Patient's family members got patient to the hospital; they reported vague disorganized behaviors such as going out to the park and staying there overnight. Patient disagrees. Says that he has been at baseline although being tapered off his Clozaril by Dr. Means, his remained consistent with taking his medications and says the [facility] was giving him his regular doses any way. Denies any AVH; denies any SI or HI; denies any paranoid delusions and none expressed. Patient said that he did leave the house the other day around 930 in the morning to hang out at [employer], needing to get some space from his family, mother's and brother's; he said he did not feel like going back and so did stay in the park that night; patient says he finds his mother very difficult to work with and wants to move out of the house and get his own place to live. Regarding medication patient says that he feels he will be fine without it; television writer reviewed his presentation during past admissions during which time he was floridly manic and psychotic however patient maintains he thinks he will be fine without medication. That said he agrees to continue Clozaril and Depakote but just Clozaril at a slightly lower dose. Denies drug use other than cannabis Past Psychiatric History: Past psychiatric admissions including [facility]IBRA. Has lived in nursing home in past. Medical Evaluation Reviewed: Yes [facility] Medical History (Updated 02/10/23 @ 00:03 by Background Daisabelon) Medical clearance for psychiatric admission Family History: Denies Social History: Chronically mentally ill, he lives in a nursing home, he has [facility] case management services. Even though he has a family who is involved and looks after him. Substance History: Cannabis only Trauma History: Unknown, the patient is a very poor historian Diagnostics Vital Signs (24Hr): Vital Signs - 24 hr 09/23/24 14:08 09/23/24 20:00 Temperature 97.5 F 98.4 F Pulse Rate 102 H 106 H Blood Pressure 125/86 136/85 Pulse Oximetry 97 97 Oxygen Delivery Method Room Air Room Air BMI result Body Mass Index 29.5 Labs 09/24/24 07:47 09/24/24 07:47 Labs: Laboratory Results - last 48 hr 09/24/24 07:47 WBC 7.8 RBC 5.10 Hgb 15.3 Hct 46.1 MCV 90.4 MCH 30.0 MCHC 33.2 RDW 13.0 Plt Count 246 MPV 10.6 Immature Gran % (Auto) 0.5 H Neut % (Auto) 59.3 Lymph % (Auto) 28.7 Nicholas % (Auto) 8.2 Eos % (Auto) 2.4 Baso % (Auto) 0.9 Lymph # (Auto) 2.2 Nicholas # (Auto) 0.6 Eos # (Auto) 0.2 Baso # (Auto) 0.1 Abs Immat Gran (auto) 0.04 H Absolute Neuts (auto) 4.6 Absolute Nucleated RBC 0.000 Nucleated RBC % (auto) 0.0 Sodium 142 Potassium 4.0 Chloride 104 Carbon Dioxide 29 Anion Gap 13 BUN 16 Creatinine 1.09 Estim Creat Clear Calc 110.6 Estimated GFR > 60 Random Glucose 100 Estimat Average Glucose 108 Hemoglobin A1c % 5.4 Calcium 9.6 Total Bilirubin 0.5 AST 34 ALT 58 H Alkaline Phosphatase 101 Total Protein 7.4 Albumin 4.8 Triglycerides 171 H Cholesterol 237 H LDL Cholesterol, Calc 170 H HDL Cholesterol 33 L TSH 4.77 H Free T4 1.12 Meds/Allergies Meds Home Medications ?Medication ?Instructions ?Recorded ?Confirmed ?Type clozapine 200 mg tablet (Clozaril) 400 mg PO BEDTIME 01/20/23 09/23/24 History clozapine 50 mg tablet (Clozaril) 50 mg PO QAM 01/20/23 09/23/24 History levothyroxine 100 mcg tablet 100 mcg PO DAILY 01/20/23 09/23/24 History (Synthroid) metoprolol tartrate 25 mg tablet 12.5 mg PO BID 01/20/23 09/23/24 History divalproex 250 mg tablet,delayed 500 mg PO BEDTIME 09/23/24 09/23/24 History release (Depakote) Allergies Allergies Allergy/AdvReac Type Severity Reaction Status Date / Time Penicillins Allergy Anaphylaxis Verified 01/19/23 23:15 Mental Status Exam Mental Status Exam Narrative: Pt is alert and oriented; behavior is isolative but cooperative, calm; patient is not in distress; dressed in casual attire with adequate hygiene; mood is described as okay and affect congruent; eye contact appropriate; Speech is a little soft; normal rate and prosody and not pressured; some psychomotor retardation present; thought process is organized and goal directed; Thought content is on finding a new place to live; otherwise pertinent to relevant topics; no delusional content expressed; denies any SI/HI. Denies AVH and there is no evidence of perceptual disturbance. Patients insight and judgment possibly impaired. Assessment & Plan Assessment & Plan (1) Schizoaffective disorder: Status: Acute Code(s): F25.9 - Schizoaffective disorder, unspecified (2) Traumatic brain injury: Status: Acute Code(s): S06.9XAA - Unspecified intracranial injury with loss of consciousness status unknown, initial encounter Plan Patient is a 34-year-old male with history of schizoaffective disorder, bipolar type, TBI, past psychiatric admissions including August who presents for some reportedly disorganized behavior in the community. Patient's family members got patient to the hospital; they reported vague disorganized behaviors such as going out to the park and staying there overnight. Patient disagrees. Says that he has been at baseline although being tapered off his Clozaril by Dr. Means, his remained consistent with taking his medications and says the [facility] was giving him his regular doses any way. Denies any AVH; denies any SI or HI; denies any paranoid delusions and none expressed. Patient said that he did leave the house the other day around 930 in the morning to hang out at [employer], needing to get some space from his family, mother's and brother's; he said he did not feel like going back and so did stay in the park that night; patient says he finds his mother very difficult to work with and wants to move out of the house and get his own place to live. Regarding medication patient says that he feels he will be fine without it; television writer reviewed his presentation during past admissions during which time he was floridly manic and psychotic however patient maintains he thinks he will be fine without medication. That said he agrees to continue Clozaril and Depakote but just Clozaril at a slightly lower dose. Denies drug use other than cannabis Formulation/clinical reasoning: Currently patient is cooperative and organized in speech and behavior; report of disorganized behavior in the community is somewhat vague and will need collateral. Will monitor patient for now. Patient agrees to continue with Clozaril but at the lower dose of 300 mg q.h.s. (down from 400 mg). Patient has somewhat unrealistic expectations about being able to get a place to live on his own. Plan: CV Q 15 minute checks Clozaril 300 mg q.h.s. (normally on 400 mg) Clozaril 50 mg daily Depakote 500 mg q.h.s. Levothyroxine Metoprolol Will get the collateral Patient educated on: diagnosis, medication risk/benefits and therapeutic strategies Informed Consent: understands, does not understand and further education needed Reason for continued inpatient stay Substantial Risk for: rapid decompensation Statement Statement: I have reviewed the history and physical and performed a pertinent examination on my patient. No changes have occurred unless specified. If the History and Physical was not performed prior to admission, the Hospitalist's service will be consulted for completing the admission physical. Time Spent With Patient Time: Total time managing care of this patient today ____ minutes.
[2024-09-24] MEDS: cloZAPine 25 MG TABLET 50 MG PO (14:07)
[2024-09-24 19:49] VITALS: BP 140/82; PULSE 112; RESP 15; TEMP 36.9; O2SAT 98
[2024-09-24] MEDS: Divalproex Sodium 500 MG TABLET.DR PO (20:52)
[2024-09-24] MEDS: cloZAPine 100 MG TABLET 300 MG PO (20:52)
[2024-09-25] MEDS: Levothyroxine Sodium 100 MCG TABLET PO (06:50)
[2024-09-25 07:00] VITALS: BMI 29.5
[2024-09-25 08:31] VITALS: BP 116/62; PULSE 88; RESP 18; TEMP 36.6; O2SAT 98
[2024-09-25] MEDS: Metoprolol Tartrate 12.5 MG HALFTAB PO ×2 (09:05→20:17)
[2024-09-25] MEDS: cloZAPine 25 MG TABLET 50 MG PO (09:05)
[2024-09-25 20:00] VITALS: BP 126/74; PULSE 84; TEMP 36.7; O2SAT 97
[2024-09-25] MEDS: Divalproex Sodium 500 MG TABLET.DR PO (20:16)
[2024-09-25] MEDS: cloZAPine 100 MG TABLET 300 MG PO (20:18)
[2024-09-25] MEDS: Acetaminophen 325 MG TABLET 650 MG PO (20:28)
[2024-09-25] MEDS: Calcium Carbonate 750 MG TAB.CHEW 500 MG PO (20:29)
--- NOTE | 2024-09-25 22:40 | HO.PSYCHPN ---
Subjective Subjective Date of Service: 09/25/24 Reason For Visit: disorganized Interim History: The patient; discussed with team Patient mostly isolative, staying in his room; denies depression but expresses frustration with not being able to make his own decisions about where he wants to live. Brass Plater discussed that he is allowed to make such decisions but provided examples of ways patient could go about this, working with [facility], etc. how challenging it will be to do this on his own from [place]... Patient however currently imply couple. Patient taking Clozaril; says he is fine with current dose; denies any psychiatric symptoms, any AVH, and no paranoid delusions expressed or that could be solicited Mental Status Exam Mental Status Exam Narrative: Pt is alert and oriented; behavior is mostly keeping to himself, but cooperative, friendly on approach; calm and in good behavioral control; patient is not in distress; dressed in casual attire with adequate hygiene and grooming; mood is described as alright and affect congruent; eye contact appropriate; Speech is normal rate, volume and prosody and not pressured; no psychomotor agitation/retardation present; thought process is organized and goal directed; Thought content is on tx, getting his own place to live; otherwise pertinent to relevant topics and without any delusional content, paranoid ideations or grandiosity; denies any SI/HI. Denies AVH and there is no evidence of perceptual disturbance. Patients insight and judgment appear intact. Diagnostics Vital Signs (24Hr): Vital Signs - 24 hr 09/25/24 08:31 Temperature 98 F Pulse Rate 88 Respiratory Rate 18 Blood Pressure 116/62 Pulse Oximetry 98 Oxygen Delivery Method Room Air BMI result Body Mass Index 29.5 Labs 09/24/24 07:47 09/24/24 07:47 Labs: Laboratory Results - last 48 hr 09/24/24 07:47 WBC 7.8 RBC 5.10 Hgb 15.3 Hct 46.1 MCV 90.4 MCH 30.0 MCHC 33.2 RDW 13.0 Plt Count 246 MPV 10.6 Immature Gran % (Auto) 0.5 H Neut % (Auto) 59.3 Lymph % (Auto) 28.7 Merrick % (Auto) 8.2 Eos % (Auto) 2.4 Baso % (Auto) 0.9 Lymph # (Auto) 2.2 Merrick # (Auto) 0.6 Eos # (Auto) 0.2 Baso # (Auto) 0.1 Abs Immat Gran (auto) 0.04 H Absolute Neuts (auto) 4.6 Absolute Nucleated RBC 0.000 Nucleated RBC % (auto) 0.0 Sodium 142 Potassium 4.0 Chloride 104 Carbon Dioxide 29 Anion Gap 13 BUN 16 Creatinine 1.09 Estim Creat Clear Calc 110.6 Estimated GFR > 60 Random Glucose 100 Estimat Average Glucose 108 Hemoglobin A1c % 5.4 Calcium 9.6 Total Bilirubin 0.5 AST 34 ALT 58 H Alkaline Phosphatase 101 Total Protein 7.4 Albumin 4.8 Triglycerides 171 H Cholesterol 237 H LDL Cholesterol, Calc 170 H HDL Cholesterol 33 L TSH 4.77 H Free T4 1.12 Medications Medications Current Medications Acetaminophen (Acetaminophen 325 Mg Tablet) 650 mg PO Q6H PRN PRN Reason: Headache/Pain, Scale 1-10 Last Admin: 09/25/24 20:28 Dose: 650 mg Al Hydroxide/Mg Hydroxide (Magnesium Hydrox/Alum Hydrox 30 Ml Oral.Susp) 30 ml PO Q6H PRN PRN Reason: Heartburn/Nausea Calcium Carbonate (Calcium Carbonate 750 Mg Tab.Chew) 500 mg PO Q6H PRN PRN Reason: Heartburn Last Admin: 09/25/24 20:29 Dose: 500 mg Clozapine (Clozapine 25 Mg Tablet) 50 mg PO DAILY [facility] Last Admin: 09/25/24 09:05 Dose: 50 mg Clozapine (Clozapine 100 Mg Tablet) 300 mg PO BEDTIME [facility] Last Admin: 09/25/24 20:18 Dose: 300 mg Divalproex Sodium (Divalproex Sodium 500 Mg Tablet.Dr) 500 mg PO BEDTIME [facility] Last Admin: 09/25/24 20:16 Dose: 500 mg Hydroxyzine HCl (Hydroxyzine Hcl 25 Mg Tablet) 25 mg PO Q6H PRN PRN Reason: mild anxiety Levothyroxine Sodium (Levothyroxine Sodium 100 Mcg Tablet) 100 mcg PO DAILY@0600 [facility] Last Admin: 09/25/24 06:50 Dose: 100 mcg Levothyroxine Sodium (Levothyroxine Sodium 100 Mcg Tablet) 100 mcg PO DAILY@0600 [facility] Last Admin: 09/25/24 06:54 Dose: Not Given Magnesium Hydroxide (Milk Of Magnesia 30 Ml Oral.Susp) 30 ml PO DAILY PRN PRN Reason: Constipation Metoprolol Tartrate (Metoprolol Tartrate 12.5 Mg Halftab) 12.5 mg PO BID [facility]; Protocol Last Admin: 09/25/24 20:17 Dose: 12.5 mg Nicotine (Nicotine 21 Mg Patch.Td24) 21 mg TRANSDERMA DAILY PRN PRN Reason: smoking cessation Olanzapine (Olanzapine 5 Mg Tablet) 5 mg PO TID PRN PRN Reason: agitation Trazodone HCl (Trazodone Hcl 50 Mg Tablet) 50 mg PO BEDTIME MRX1 PRN PRN Reason: Insomnia Allergies Allergies Allergy/AdvReac Type Severity Reaction Status Date / Time Penicillins Allergy Anaphylaxis Verified 01/19/23 23:15 Assessment & Plan Assessment & Plan (1) Schizoaffective disorder: Status: Acute Code(s): F25.9 - Schizoaffective disorder, unspecified (2) Traumatic brain injury: Status: Acute Code(s): S06.9XAA - Unspecified intracranial injury with loss of consciousness status unknown, initial encounter Plan Patient is a 34-year-old male with history of schizoaffective disorder, bipolar type, TBI, past psychiatric admissions including August who presents for some reportedly disorganized behavior in the community. Patient's family members got patient to the hospital; they reported vague disorganized behaviors such as going out to the park and staying there overnight. Patient disagrees. Says that he has been at baseline although being tapered off his Clozaril by Dr. Means, his remained consistent with taking his medications and says the [facility] was giving him his regular doses any way. Denies any AVH; denies any SI or HI; denies any paranoid delusions and none expressed. Patient said that he did leave the house the other day around 930 in the morning to hang out at [employer], needing to get some space from his family, mother's and brother's; he said he did not feel like going back and so did stay in the park that night; patient says he finds his mother very difficult to work with and wants to move out of the house and get his own place to live. Regarding medication patient says that he feels he will be fine without it; underwriter solicitation director reviewed his presentation during past admissions during which time he was floridly manic and psychotic however patient maintains he thinks he will be fine without medication. That said he agrees to continue Clozaril and Depakote but just Clozaril at a slightly lower dose. Denies drug use other than cannabis Formulation/clinical reasoning: Currently patient is cooperative and organized in speech and behavior; report of disorganized behavior in the community is somewhat vague and will need collateral. Will monitor patient for now. Patient is currently on a Guillermo, due to be renewed in September. While the Guillermo order ostensibly gives underwriter solicitation director court authority to insist on Clozaril 400 mg, patient is in good behavioral and impulse control, organized in speech and behavior, talking in a logical way and denies any psychotic symptoms and none observed. For this reason underwriter solicitation director agrees to patient is demand/request for a lower dose of Clozaril 300 mg q.h.s. (down from 400 mg); will reach out to patient's outpatient provider to discuss. Patient has somewhat unrealistic expectations about being able to get a place to live on his own. Hospital course: 09/25 Patient mostly isolative, staying in his room; denies depression but expresses frustration with not being able to make his own decisions about where he wants to live. Brass Plater discussed that he is allowed to make such decisions but provided examples of ways patient could go about this, working with [facility], etc. how challenging it will be to do this on his own from [place]... Patient however currently implacable. Patient taking Clozaril; says he is fine with current dose; denies any psychiatric symptoms, any AVH, and no paranoid delusions expressed or that could be solicited Plan: CV Q 15 minute checks Clozaril 300 mg q.h.s. (normally on 400 mg) Clozaril 50 mg daily Depakote 500 mg q.h.s. Continue levothyroxine at 100 mcg daily TSH WNL 3.13. Continue Metoprolol 12.5 mgs BID Patient educated on: diagnosis, medication risk/benefits and therapeutic strategies Informed Consent: understands, does not understand and further education needed Reason for continued inpatient stay Substantial Risk for: rapid decompensation Time Spent With Patient Time: Total time managing care of this patient today ____ minutes.
[2024-09-26] MEDS: Levothyroxine Sodium 100 MCG TABLET PO (07:26)
[2024-09-26 08:00] VITALS: BP 107/65; PULSE 88; RESP 16; TEMP 36.9; O2SAT 96
[2024-09-26] MEDS: Metoprolol Tartrate 12.5 MG HALFTAB PO ×2 (09:13→21:07)
[2024-09-26] MEDS: cloZAPine 25 MG TABLET 50 MG PO (09:14)
[2024-09-26 20:00] VITALS: BP 135/86; PULSE 104; TEMP 36.8; O2SAT 99
[2024-09-26] MEDS: cloZAPine 100 MG TABLET 300 MG PO (21:07)
[2024-09-26] MEDS: traZODone HCL 50 MG TABLET PO (21:07)
[2024-09-26] MEDS: Divalproex Sodium 500 MG TABLET.DR PO (21:07)
[2024-09-26] MEDS: Calcium Carbonate 750 MG TAB.CHEW 500 MG PO (21:32)
[2024-09-26] MEDS: Acetaminophen 325 MG TABLET 650 MG PO (22:07)
[2024-09-27] MEDS: Levothyroxine Sodium 100 MCG TABLET PO (06:26)
[2024-09-27 08:00] VITALS: BP 102/58; PULSE 88; TEMP 36.5; O2SAT 98
[2024-09-27] MEDS: cloZAPine 25 MG TABLET 50 MG PO (09:22)
[2024-09-27] MEDS: Metoprolol Tartrate 12.5 MG HALFTAB PO ×2 (09:23→21:39)
--- NOTE | 2024-09-27 10:41 | P.PNPSI_ITS ---
Subjective Subjective Date of Service: 09/26/24 Reason For Visit: disorganized Interim History: late entry note for pt seen on 09/26; discussed with team No change in presentation. Patient remains isolative but denies depression. Appropriate and cooperative on approach. Agrees to continue taking current Clozaril dose; remains focused on finding his own place to live. Copy Chaser and neonatal social worker discussed the complexities of this; patient amenable to social work reaching out to his [facility] worker Mental Status Exam Mental Status Exam Narrative: Pt is alert and oriented; behavior is mostly keeping to himself, but cooperative, friendly on approach; calm and in good behavioral control; patient is not in distress; dressed in casual attire with adequate hygiene and grooming; mood is described as ok and affect congruent; eye contact appropriate; Speech is normal rate, volume and prosody and not pressured; no psychomotor agitation/retardation present; thought process is organized and goal directed; Thought content is on tx; otherwise pertinent to relevant topics and without any delusional content, paranoid ideations or grandiosity; denies any SI/HI. Denies AVH and there is no evidence of perceptual disturbance. Patients insight and judgment impaired in the sense that patient does not appreciate the degree to which he decompensates when off medications; otherwise, appear intact Diagnostics Vital Signs (24Hr): Vital Signs - 24 hr 09/26/24 20:00 Temperature 98.2 F Pulse Rate 104 H Blood Pressure 135/86 Pulse Oximetry 99 Oxygen Delivery Method Room Air BMI result Body Mass Index 29.5 Labs 09/24/24 07:47 09/24/24 07:47 Medications Medications Current Medications Acetaminophen (Acetaminophen 325 Mg Tablet) 650 mg PO Q6H PRN PRN Reason: Headache/Pain, Scale 1-10 Last Admin: 09/26/24 22:07 Dose: 650 mg Al Hydroxide/Mg Hydroxide (Magnesium Hydrox/Alum Hydrox 30 Ml Oral.Susp) 30 ml PO Q6H PRN PRN Reason: Heartburn/Nausea Calcium Carbonate (Calcium Carbonate 750 Mg Tab.Chew) 500 mg PO Q6H PRN PRN Reason: Heartburn Last Admin: 09/26/24 21:32 Dose: 500 mg Clozapine (Clozapine 25 Mg Tablet) 50 mg PO DAILY [facility] Last Admin: 09/27/24 09:22 Dose: 50 mg Clozapine (Clozapine 100 Mg Tablet) 300 mg PO BEDTIME [facility] Last Admin: 09/26/24 21:07 Dose: 300 mg Divalproex Sodium (Divalproex Sodium 500 Mg Tablet.) 500 mg PO BEDTIME [facility] Last Admin: 09/26/24 21:07 Dose: 500 mg Hydroxyzine HCl (Hydroxyzine Hcl 25 Mg Tablet) 25 mg PO Q6H PRN PRN Reason: mild anxiety Levothyroxine Sodium (Levothyroxine Sodium 100 Mcg Tablet) 100 mcg PO DAILY@0600 [facility] Last Admin: 09/27/24 06:26 Dose: 100 mcg Levothyroxine Sodium (Levothyroxine Sodium 100 Mcg Tablet) 100 mcg PO DAILY@0600 [facility] Last Admin: 09/27/24 06:32 Dose: Not Given Magnesium Hydroxide (Milk Of Magnesia 30 Ml Oral.Susp) 30 ml PO DAILY PRN PRN Reason: Constipation Metoprolol Tartrate (Metoprolol Tartrate 12.5 Mg Halftab) 12.5 mg PO BID [facility]; Protocol Last Admin: 09/27/24 09:23 Dose: 12.5 mg Nicotine (Nicotine 21 Mg Patch.Td24) 21 mg TRANSDERMA DAILY PRN PRN Reason: smoking cessation Olanzapine (Olanzapine 5 Mg Tablet) 5 mg PO TID PRN PRN Reason: agitation Trazodone HCl (Trazodone Hcl 50 Mg Tablet) 50 mg PO BEDTIME MRX1 PRN PRN Reason: Insomnia Last Admin: 09/26/24 21:07 Dose: 50 mg Allergies Allergies Allergy/AdvReac Type Severity Reaction Status Date / Time Penicillins Allergy Anaphylaxis Verified 01/19/23 23:15 Assessment & Plan Assessment & Plan (1) Schizoaffective disorder: Status: Acute Code(s): F25.9 - Schizoaffective disorder, unspecified (2) Traumatic brain injury: Status: Acute Code(s): S06.9XAA - Unspecified intracranial injury with loss of consciousness status unknown, initial encounter Plan Patient is a 34-year-old male with history of schizoaffective disorder, bipolar type, on Community Guillermo order TBI, past psychiatric admissions including V[facility]lar who presents for some reportedly disorganized behavior in the community. Patient's family members got patient to the hospital; they reported vague disorganized behaviors such as going out to the park and staying there overnight. Patient disagrees. Says that he has been at baseline although being tapered off his Clozaril by Dr. Means, his remained consistent with taking his medications and says the [facility]NA was giving him his regular doses any way. Denies any AVH; denies any SI or HI; denies any paranoid delusions and none expressed. Patient said that he did leave the house the other day around 930 in the morning to hang out at [employer], needing to get some space from his family, mother's and brother's; he said he did not feel like going back and so did stay in the park that night; patient says he finds his mother very difficult to work with and wants to move out of the house and get his own place to live. Regarding medication patient says that he feels he will be fine without it; proposal manager writer reviewed his presentation during past admissions during which time he was floridly manic and psychotic however patient maintains he thinks he will be fine without medication. That said he agrees to continue Clozaril and Depakote but just Clozaril at a slightly lower dose. Denies drug use other than cannabis Formulation/clinical reasoning: Currently patient is cooperative and organized in speech and behavior; report of disorganized behavior in the community is somewhat vague and will need collateral. Will monitor patient for now. Patient is currently on a Guillermo, due to be renewed in September. While the Guillermo order ostensibly gives proposal manager writer court authority to insist on Clozaril 400 mg, patient is in good behavioral and impulse control, organized in speech and behavior, talking in a logical way and denies any psychotic symptoms and none observed. For this reason proposal manager writer agrees to patient is demand/request for a lower dose of Clozaril 300 mg q.h.s. (down from 400 mg); will reach out to patient's outpatient provider to discuss. Patient has somewhat unrealistic expectations about being able to get a place to live on his own. Hospital course: 09/25 Patient mostly isolative, staying in his room; denies depression but expresses frustration with not being able to make his own decisions about where he wants to live. Copy Chaser discussed that he is allowed to make such decisions but provided examples of ways patient could go about this, working with [facility], etc. how challenging it will be to do this on his own from a [facility]... Patient however currently implacable. Patient taking Clozaril; says he is fine with current dose; denies any psychiatric symptoms, any AVH, and no paranoid delusions expressed or that could be solicited 09/26 remains stable, organized behavior and speech and in good behavioral control. Remains adherent with medication; remains focused on finding his own place to live even if that means going to a [facility]. Reaching out to [facility] team Plan: CV Q 15 minute checks Clozaril 300 mg q.h.s. (normally on 400 mg) Clozaril 50 mg daily Depakote 500 mg q.h.s. Continue levothyroxine at 100 mcg daily TSH WNL 3.13. Continue Metoprolol 12.5 mgs BID Patient educated on: diagnosis and medication risk/benefits Informed Consent: understands, does not understand and further education needed Reason for continued inpatient stay Substantial Risk for: stable for discharge Time Spent With Patient Time: Total time managing care of this patient today ____ minutes.
--- NOTE | 2024-09-27 11:09 | P.PNPSI_ITS ---
Subjective Subjective Date of Service: 09/27/24 Reason For Visit: disorganized Subjective Notes: Conditional Voluntary Interim History: Patient was seen and discussed in rounds today. Records and plans were reviewed. He has been stable, visible and cooperative. Mostly withdrawn. Declines one-to-one contact. Encouraged to attend groups. Eating and sleeping adequately. No SI. No complaints or side effects. No changes were made today Review of Systems Review of Systems Yes all other systems are reviewed and are negative Mental Status Exam Mental Status Exam Narrative: In today's visit he is alert, oriented and pleasant. Normal speech. Moderate eye contact. Affect is appropriate and varied. No signs of psychosis. No cognitive deficits. No AVH. No SI. Judgment is intact. Diagnostics Vital Signs (24Hr): Vital Signs - 24 hr 09/26/24 20:00 Temperature 98.2 F Pulse Rate 104 H Blood Pressure 135/86 Pulse Oximetry 99 Oxygen Delivery Method Room Air BMI result Body Mass Index 29.5 Labs 09/24/24 07:47 09/24/24 07:47 Medications Medications Current Medications Acetaminophen (Acetaminophen 325 Mg Tablet) 650 mg PO Q6H PRN PRN Reason: Headache/Pain, Scale 1-10 Last Admin: 09/26/24 22:07 Dose: 650 mg Al Hydroxide/Mg Hydroxide (Magnesium Hydrox/Alum Hydrox 30 Ml Oral.Susp) 30 ml PO Q6H PRN PRN Reason: Heartburn/Nausea Calcium Carbonate (Calcium Carbonate 750 Mg Tab.Chew) 500 mg PO Q6H PRN PRN Reason: Heartburn Last Admin: 09/26/24 21:32 Dose: 500 mg Clozapine (Clozapine 25 Mg Tablet) 50 mg PO DAILY [facility] Last Admin: 09/27/24 09:22 Dose: 50 mg Clozapine (Clozapine 100 Mg Tablet) 300 mg PO BEDTIME [facility] Last Admin: 09/26/24 21:07 Dose: 300 mg Divalproex Sodium (Divalproex Sodium 500 Mg Tablet.Dr) 500 mg PO BEDTIME [facility] Last Admin: 09/26/24 21:07 Dose: 500 mg Hydroxyzine HCl (Hydroxyzine Hcl 25 Mg Tablet) 25 mg PO Q6H PRN PRN Reason: mild anxiety Levothyroxine Sodium (Levothyroxine Sodium 100 Mcg Tablet) 100 mcg PO DAILY@0600 [facility] Last Admin: 09/27/24 06:26 Dose: 100 mcg Levothyroxine Sodium (Levothyroxine Sodium 100 Mcg Tablet) 100 mcg PO DAILY@0600 [facility] Last Admin: 09/27/24 06:32 Dose: Not Given Magnesium Hydroxide (Milk Of Magnesia 30 Ml Oral.Susp) 30 ml PO DAILY PRN PRN Reason: Constipation Metoprolol Tartrate (Metoprolol Tartrate 12.5 Mg Halftab) 12.5 mg PO BID [facility]; Protocol Last Admin: 09/27/24 09:23 Dose: 12.5 mg Nicotine (Nicotine 21 Mg Patch.Td24) 21 mg TRANSDERMA DAILY PRN PRN Reason: smoking cessation Olanzapine (Olanzapine 5 Mg Tablet) 5 mg PO TID PRN PRN Reason: agitation Trazodone HCl (Trazodone Hcl 50 Mg Tablet) 50 mg PO BEDTIME MRX1 PRN PRN Reason: Insomnia Last Admin: 09/26/24 21:07 Dose: 50 mg Allergies Allergies Allergy/AdvReac Type Severity Reaction Status Date / Time Penicillins Allergy Anaphylaxis Verified 01/19/23 23:15 Assessment & Plan Assessment & Plan (1) Medical clearance for psychiatric admission: Status: Inactive Code(s): Z00.8 - Encounter for other general examination Plan 34-year-old male with a PMH significant for chronic back pain, schizoaffective disorder, bipolar disorder, depression, anxiety, hypothyroidism admitted to inpatient psychiatry after concerns from his mother that his mind is not there and he presented to [facility].. ? Hospital course: 09/26 pt remains stable on lower dose of clozapine; working on dispo plan: CV q15min continue Clozapine 50mg daily Continue Clozapine 300mg qhs (normally on 400mg) Continue Depakote ER 500mg qhs Hypothyroidism Continue levothyroxine at 100 mcg daily TSH WNL 3.13. HTN Continue Metoprolol 12.5 mgs BID 09/27: Continue current regimen and plans. Reason for continued inpatient stay Substantial Risk for: med/psych decompensation Time Spent With Patient Time: Total time managing care of this patient today ____ minutes.
[2024-09-27 19:47] VITALS: BP 130/76; PULSE 108; TEMP 36.6; O2SAT 97
[2024-09-27] MEDS: cloZAPine 100 MG TABLET 300 MG PO (21:39)
[2024-09-27] MEDS: Divalproex Sodium 500 MG TABLET.DR PO (21:39)
[2024-09-27] MEDS: traZODone HCL 50 MG TABLET PO (21:39)
[2024-09-28] MEDS: Levothyroxine Sodium 100 MCG TABLET PO (06:08)
[2024-09-28 08:55] VITALS: BP 118/55; PULSE 85; RESP 19; TEMP 36.5; O2SAT 98
[2024-09-28] MEDS: Metoprolol Tartrate 12.5 MG HALFTAB PO ×2 (09:06→22:00)
[2024-09-28] MEDS: cloZAPine 25 MG TABLET 50 MG PO (09:07)
--- NOTE | 2024-09-28 11:12 | P.PNPSI_ITS ---
Subjective Subjective Date of Service: 09/28/24 Reason For Visit: disorganized Subjective Notes: Conditional Voluntary Interim History: Patient was seen and discussed in rounds today. Records and plans were reviewed. He is doing better and has been brighter. Continues to be somewhat disorganized. No SI. No AVH. Visible and pleasant. Keeps mostly to himself. Eating and sleeping well. No complaints or side effects. No changes were made today Review of Systems Review of Systems Yes all other systems are reviewed and are negative Mental Status Exam Mental Status Exam Narrative: In today's visit he is alert, oriented and pleasant. Normal speech. Moderate eye contact. Affect is appropriate and varied. No signs of psychosis. No cognitive deficits. No AVH. No SI. Judgment is intact. Diagnostics Vital Signs (24Hr): Vital Signs - 24 hr 09/27/24 19:47 09/28/24 08:55 Temperature 97.9 F 97.7 F Pulse Rate 108 H 85 Respiratory Rate 19 Blood Pressure 130/76 118/55 L Pulse Oximetry 97 98 Oxygen Delivery Method Room Air Room Air BMI result Body Mass Index 29.5 Labs 09/24/24 07:47 09/24/24 07:47 Medications Medications Current Medications Acetaminophen (Acetaminophen 325 Mg Tablet) 650 mg PO Q6H PRN PRN Reason: Headache/Pain, Scale 1-10 Last Admin: 09/26/24 22:07 Dose: 650 mg Al Hydroxide/Mg Hydroxide (Magnesium Hydrox/Alum Hydrox 30 Ml Oral.Susp) 30 ml PO Q6H PRN PRN Reason: Heartburn/Nausea Calcium Carbonate (Calcium Carbonate 750 Mg Tab.Chew) 500 mg PO Q6H PRN PRN Reason: Heartburn Last Admin: 09/26/24 21:32 Dose: 500 mg Clozapine (Clozapine 25 Mg Tablet) 50 mg PO DAILY [facility] Last Admin: 09/28/24 09:07 Dose: 50 mg Clozapine (Clozapine 100 Mg Tablet) 300 mg PO BEDTIME [facility] Last Admin: 09/27/24 21:39 Dose: 300 mg Divalproex Sodium (Divalproex Sodium 500 Mg Tablet.Dr) 500 mg PO BEDTIME [facility] Last Admin: 09/27/24 21:39 Dose: 500 mg Hydroxyzine HCl (Hydroxyzine Hcl 25 Mg Tablet) 25 mg PO Q6H PRN PRN Reason: mild anxiety Levothyroxine Sodium (Levothyroxine Sodium 100 Mcg Tablet) 100 mcg PO DAILY@0600 [facility] Last Admin: 09/28/24 06:08 Dose: 100 mcg Levothyroxine Sodium (Levothyroxine Sodium 100 Mcg Tablet) 100 mcg PO DAILY@0600 [facility] Last Admin: 09/28/24 06:08 Dose: Not Given Magnesium Hydroxide (Milk Of Magnesia 30 Ml Oral.Susp) 30 ml PO DAILY PRN PRN Reason: Constipation Metoprolol Tartrate (Metoprolol Tartrate 12.5 Mg Halftab) 12.5 mg PO BID [facility]; Protocol Last Admin: 09/28/24 09:06 Dose: 12.5 mg Nicotine (Nicotine 21 Mg Patch.Td24) 21 mg TRANSDERMA DAILY PRN PRN Reason: smoking cessation Olanzapine (Olanzapine 5 Mg Tablet) 5 mg PO TID PRN PRN Reason: agitation Trazodone HCl (Trazodone Hcl 50 Mg Tablet) 50 mg PO BEDTIME MRX1 PRN PRN Reason: Insomnia Last Admin: 09/27/24 21:39 Dose: 50 mg Allergies Allergies Allergy/AdvReac Type Severity Reaction Status Date / Time Penicillins Allergy Anaphylaxis Verified 01/19/23 23:15 Assessment & Plan Assessment & Plan (1) Medical clearance for psychiatric admission: Status: Inactive Code(s): Z00.8 - Encounter for other general examination Plan 34-year-old male with a PMH significant for chronic back pain, schizoaffective disorder, bipolar disorder, depression, anxiety, hypothyroidism admitted to inpatient psychiatry after concerns from his mother that his mind is not there and he presented to [facility].. ? Hospital course: 09/26 pt remains stable on lower dose of clozapine; working on dispo plan: CV q15min continue Clozapine 50mg daily Continue Clozapine 300mg qhs (normally on 400mg) Continue Depakote ER 500mg qhs Hypothyroidism Continue levothyroxine at 100 mcg daily TSH WNL 3.13. HTN Continue Metoprolol 12.5 mgs BID 09/27: Continue current regimen and plans. 09/28: Continue current regimen and plans. Reason for continued inpatient stay Substantial Risk for: med/psych decompensation Time Spent With Patient Time: Total time managing care of this patient today ____ minutes.
[2024-09-28 21:32] VITALS: BP 133/83; PULSE 122; TEMP 37; O2SAT 96
[2024-09-28] MEDS: Acetaminophen 325 MG TABLET 650 MG PO (21:57)
[2024-09-28] MEDS: Divalproex Sodium 500 MG TABLET.DR PO (21:59)
[2024-09-28] MEDS: traZODone HCL 50 MG TABLET PO ×2 (21:59→22:01)
[2024-09-28] MEDS: cloZAPine 100 MG TABLET 300 MG PO (21:59)
[2024-09-28] MEDS: Calcium Carbonate 750 MG TAB.CHEW 500 MG PO (22:05)
[2024-09-29] MEDS: Levothyroxine Sodium 100 MCG TABLET PO (06:14)
[2024-09-29 09:13] VITALS: BP 109/64; PULSE 93; TEMP 36.7; O2SAT 97
[2024-09-29] MEDS: cloZAPine 25 MG TABLET 50 MG PO (09:22)
[2024-09-29] MEDS: Metoprolol Tartrate 12.5 MG HALFTAB PO ×2 (09:23→20:44)
--- NOTE | 2024-09-29 12:58 | HO.PSYCHPN ---
Subjective Subjective Date of Service: 09/29/24 Reason For Visit: disorganized Interim History: met with patient; discussed with team pt reports doing well; no psychotic symptoms. Pt discussed ways he can increase independence from family and how to navigate [facility] team. Discussed therapy; discussed housing. Mental Status Exam Mental Status Exam Narrative: Pt is alert and oriented; behavior is more engaged, a little more social and out of his room more; cooperative, friendly on approach; calm and in good behavioral control; patient is not in distress; dressed in casual attire with adequate hygiene and grooming; mood is described as good and affect congruent, brighter; eye contact appropriate; Speech is normal rate, volume and prosody and not pressured; no psychomotor agitation/retardation present; thought process is organized and goal directed; Thought content is on tx; otherwise pertinent to relevant topics and without any delusional content, paranoid ideations or grandiosity; denies any SI/HI. Denies AVH and there is no evidence of perceptual disturbance. Patients insight and judgment impaired in the sense that patient does not appreciate the degree to which he decompensates when off medications; otherwise, appear intact Diagnostics Vital Signs (24Hr): Vital Signs - 24 hr 09/28/24 21:32 09/29/24 09:13 Temperature 98.6 F 98.1 F Pulse Rate 122 H 93 Blood Pressure 133/83 109/64 Pulse Oximetry 96 97 Oxygen Delivery Method Room Air Room Air BMI result Body Mass Index 29.5 Labs 09/24/24 07:47 09/24/24 07:47 Medications Medications Current Medications Acetaminophen (Acetaminophen 325 Mg Tablet) 650 mg PO Q6H PRN PRN Reason: Headache/Pain, Scale 1-10 Last Admin: 09/28/24 21:57 Dose: 650 mg Al Hydroxide/Mg Hydroxide (Magnesium Hydrox/Alum Hydrox 30 Ml Oral.Susp) 30 ml PO Q6H PRN PRN Reason: Heartburn/Nausea Calcium Carbonate (Calcium Carbonate 750 Mg Tab.Chew) 500 mg PO Q6H PRN PRN Reason: Heartburn Last Admin: 09/28/24 22:05 Dose: 500 mg Clozapine (Clozapine 25 Mg Tablet) 50 mg PO DAILY [facility] Last Admin: 09/29/24 09:22 Dose: 50 mg Clozapine (Clozapine 100 Mg Tablet) 300 mg PO BEDTIME [facility] Last Admin: 09/28/24 21:59 Dose: 300 mg Divalproex Sodium (Divalproex Sodium 500 Mg Tablet.) 500 mg PO BEDTIME [facility] Last Admin: 09/28/24 21:59 Dose: 500 mg Hydroxyzine HCl (Hydroxyzine Hcl 25 Mg Tablet) 25 mg PO Q6H PRN PRN Reason: mild anxiety Levothyroxine Sodium (Levothyroxine Sodium 100 Mcg Tablet) 100 mcg PO DAILY@0600 [facility] Last Admin: 09/29/24 06:14 Dose: 100 mcg Levothyroxine Sodium (Levothyroxine Sodium 100 Mcg Tablet) 100 mcg PO DAILY@0600 [facility] Last Admin: 09/29/24 05:53 Dose: Not Given Magnesium Hydroxide (Milk Of Magnesia 30 Ml Oral.Susp) 30 ml PO DAILY PRN PRN Reason: Constipation Metoprolol Tartrate (Metoprolol Tartrate 12.5 Mg Halftab) 12.5 mg PO BID [facility]; Protocol Last Admin: 09/29/24 09:23 Dose: 12.5 mg Nicotine (Nicotine 21 Mg Patch.Td24) 21 mg TRANSDERMA DAILY PRN PRN Reason: smoking cessation Olanzapine (Olanzapine 5 Mg Tablet) 5 mg PO TID PRN PRN Reason: agitation Trazodone HCl (Trazodone Hcl 50 Mg Tablet) 50 mg PO BEDTIME MRX1 PRN PRN Reason: Insomnia Last Admin: 09/28/24 22:01 Dose: 50 mg Allergies Allergies Allergy/AdvReac Type Severity Reaction Status Date / Time Penicillins Allergy Anaphylaxis Verified 01/19/23 23:15 Assessment & Plan Assessment & Plan (1) Schizoaffective disorder: Status: Acute Code(s): F25.9 - Schizoaffective disorder, unspecified (2) Traumatic brain injury: Status: Acute Code(s): S06.9XAA - Unspecified intracranial injury with loss of consciousness status unknown, initial encounter Plan Patient is a 34-year-old male with history of schizoaffective disorder, bipolar type, on Community Guillermo order TBI, past psychiatric admissions including [facility] who presents for some reportedly disorganized behavior in the community. Patient's family members got patient to the hospital; they reported vague disorganized behaviors such as going out to the park and staying there overnight. Patient disagrees. Says that he has been at baseline although being tapered off his Clozaril by Dr. Means, his remained consistent with taking his medications and says the [facility] was giving him his regular doses any way. Denies any AVH; denies any SI or HI; denies any paranoid delusions and none expressed. Patient said that he did leave the house the other day around 930 in the morning to hang out at [employer], needing to get some space from his family, mother's and brother's; he said he did not feel like going back and so did stay in the park that night; patient says he finds his mother very difficult to work with and wants to move out of the house and get his own place to live. Regarding medication patient says that he feels he will be fine without it; justowriter operator reviewed his presentation during past admissions during which time he was floridly manic and psychotic however patient maintains he thinks he will be fine without medication. That said he agrees to continue Clozaril and Depakote but just Clozaril at a slightly lower dose. Denies drug use other than cannabis Formulation/clinical reasoning: Currently patient is cooperative and organized in speech and behavior; report of disorganized behavior in the community is somewhat vague and will need collateral. Will monitor patient for now. Patient is currently on a Guillermo, due to be renewed in September. While the Guillermo order ostensibly gives justowriter operator court authority to insist on Clozaril 400 mg, patient is in good behavioral and impulse control, organized in speech and behavior, talking in a logical way and denies any psychotic symptoms and none observed. For this reason justowriter operator agrees to patient is demand/request for a lower dose of Clozaril 300 mg q.h.s. (down from 400 mg); will reach out to patient's outpatient provider to discuss. Patient has somewhat unrealistic expectations about being able to get a place to live on his own. Hospital course: 09/25 Patient mostly isolative, staying in his room; denies depression but expresses frustration with not being able to make his own decisions about where he wants to live. Store Mgr discussed that he is allowed to make such decisions but provided examples of ways patient could go about this, working with [facility], etc. how challenging it will be to do this on his own from a long term... Patient however currently implacable. Patient taking Clozaril; says he is fine with current dose; denies any psychiatric symptoms, any AVH, and no paranoid delusions expressed or that could be solicited 09/26 remains stable, organized behavior and speech and in good behavioral control. Remains adherent with medication; remains focused on finding his own place to live even if that means going to a long term. Reaching out to [facility] team 09/29 pt reports doing well; no psychotic symptoms. Pt discussed ways he can increase independence from family and how to navigate [facility] team. Discussed therapy; discussed housing. Plan: CV Q 15 minute checks Clozaril 300 mg q.h.s. (normally on 400 mg) Clozaril 50 mg daily Depakote 500 mg q.h.s. Continue levothyroxine at 100 mcg daily TSH WNL 3.13. Continue Metoprolol 12.5 mgs BID Patient educated on: diagnosis and therapeutic strategies Informed Consent: understands Reason for continued inpatient stay Substantial Risk for: stable for discharge Time Spent With Patient Time: Total time managing care of this patient today ____ minutes.
[2024-09-29 19:54] VITALS: BP 107/95; PULSE 115; O2SAT 99
[2024-09-29] MEDS: Acetaminophen 325 MG TABLET 650 MG PO (20:42)
[2024-09-29] MEDS: Calcium Carbonate 750 MG TAB.CHEW 500 MG PO (20:43)
[2024-09-29] MEDS: traZODone HCL 50 MG TABLET PO (20:44)
[2024-09-29] MEDS: cloZAPine 100 MG TABLET 300 MG PO (20:44)
[2024-09-29] MEDS: Divalproex Sodium 500 MG TABLET.DR PO (20:45)
[2024-09-30] MEDS: Levothyroxine Sodium 100 MCG TABLET PO (05:58)
[2024-09-30 08:00] VITALS: BP 122/77; PULSE 96; TEMP 36.5; O2SAT 96
[2024-09-30] MEDS: cloZAPine 25 MG TABLET 50 MG PO (08:41)
[2024-09-30] MEDS: Metoprolol Tartrate 12.5 MG HALFTAB PO ×2 (08:41→20:50)
--- NOTE | 2024-09-30 09:22 | P.PNPSI_ITS ---
Subjective Subjective Date of Service: 09/30/24 Reason For Visit: disorganized Interim History: Met with patient; discussed with team Patient remains in good behavioral and impulse control; cooperative on approach, logical and linear in discussion. Denies any psychiatric/psychotic symptoms and none observed. Patient reports feeling good; remains focused on getting his own place to live. Social work reaching out to [facility] however not sure their involvement. Department Traffic Freight Router discussed case with patient's outpatient provider Dr. Means who reports that there was never any decisions/plan to lower patient's clozapine; they did lower him off his antidepressant which made Dr. Means think they might need to go up on his clozapine if anything. Department Traffic Freight Router discussed how patient has wanted a lower dose and so far has remained stable at this lower dose; Dr. Means feels that it is reasonable to give patient a chance to see if he can remain stable on lower dose and that he will just read titrated if needed as an outpatient. Mental Status Exam Mental Status Exam Narrative: Pt is alert and oriented; behavior is more engaged, a little more social and out of his room more; cooperative, friendly on approach; calm and in good behavioral control; patient is not in distress; dressed in casual attire with adequate hygiene and grooming; mood is described as good and affect congruent, brighter; eye contact appropriate; Speech is normal rate, volume and prosody and not pressured; no psychomotor agitation/retardation present; thought process is organized and goal directed; Thought content is on tx; otherwise pertinent to relevant topics and without any delusional content, paranoid ideations or grandiosity; denies any SI/HI. Denies AVH and there is no evidence of perceptual disturbance. Patients insight and judgment impaired in the sense that patient does not appreciate the degree to which he decompensates when off medications; otherwise, appear intact Diagnostics Vital Signs (24Hr): Vital Signs - 24 hr 09/29/24 19:54 Pulse Rate 115 H Blood Pressure 107/95 H Pulse Oximetry 99 Oxygen Delivery Method Room Air BMI result Body Mass Index 29.5 Labs 09/24/24 07:47 09/24/24 07:47 Medications Medications Current Medications Acetaminophen (Acetaminophen 325 Mg Tablet) 650 mg PO Q6H PRN PRN Reason: Headache/Pain, Scale 1-10 Last Admin: 09/29/24 20:42 Dose: 650 mg Al Hydroxide/Mg Hydroxide (Magnesium Hydrox/Alum Hydrox 30 Ml Oral.Susp) 30 ml PO Q6H PRN PRN Reason: Heartburn/Nausea Calcium Carbonate (Calcium Carbonate 750 Mg Tab.Chew) 500 mg PO Q6H PRN PRN Reason: Heartburn Last Admin: 09/29/24 20:43 Dose: 500 mg Clonidine HCl (Clonidine Hcl 0.1 Mg Tablet) 0.1 mg PO Q4H PRN; Protocol PRN Reason: moderate anxiety Clozapine (Clozapine 25 Mg Tablet) 50 mg PO DAILY [facility] Last Admin: 09/30/24 08:41 Dose: 50 mg Clozapine (Clozapine 100 Mg Tablet) 300 mg PO BEDTIME [facility] Last Admin: 09/29/24 20:44 Dose: 300 mg Divalproex Sodium (Divalproex Sodium 500 Mg Tablet.Dr) 500 mg PO BEDTIME [facility] Last Admin: 09/29/24 20:45 Dose: 500 mg Hydroxyzine HCl (Hydroxyzine Hcl 25 Mg Tablet) 25 mg PO Q6H PRN PRN Reason: mild anxiety Levothyroxine Sodium (Levothyroxine Sodium 100 Mcg Tablet) 100 mcg PO DAILY@0600 [facility] Last Admin: 09/30/24 05:58 Dose: 100 mcg Magnesium Hydroxide (Milk Of Magnesia 30 Ml Oral.Susp) 30 ml PO DAILY PRN PRN Reason: Constipation Metoprolol Tartrate (Metoprolol Tartrate 12.5 Mg Halftab) 12.5 mg PO BID [facility]; Protocol Last Admin: 09/30/24 08:41 Dose: 12.5 mg Nicotine (Nicotine 21 Mg Patch.Td24) 21 mg TRANSDERMA DAILY PRN PRN Reason: smoking cessation Olanzapine (Olanzapine 5 Mg Tablet) 5 mg PO TID PRN PRN Reason: agitation Trazodone HCl (Trazodone Hcl 50 Mg Tablet) 50 mg PO BEDTIME MRX1 PRN PRN Reason: Insomnia Last Admin: 09/29/24 20:44 Dose: 50 mg Allergies Allergies Allergy/AdvReac Type Severity Reaction Status Date / Time Penicillins Allergy Anaphylaxis Verified 01/19/23 23:15 Assessment & Plan Assessment & Plan (1) Schizoaffective disorder: Status: Acute Code(s): F25.9 - Schizoaffective disorder, unspecified (2) Traumatic brain injury: Status: Acute Code(s): S06.9XAA - Unspecified intracranial injury with loss of consciousness status unknown, initial encounter Plan HPI: Patient is a 34-year-old male with history of schizoaffective disorder, bipolar type, on Community Guillermo order TBI, past psychiatric admissions including Efrenefrarenae who presents for some reportedly disorganized behavior in the community. Patient's family members got patient to the hospital; they reported vague disorganized behaviors such as going out to the park and staying there overnight. Patient disagrees. Says that he has been at baseline although being tapered off his Clozaril by Dr. Means, his remained consistent with taking his medications and says the [facility] was giving him his regular doses any way. Denies any AVH; denies any SI or HI; denies any paranoid delusions and none expressed. Patient said that he did leave the house the other day around 930 in the morning to hang out at [email or web address] donuts, needing to get some space from his family, mother's and brother's; he said he did not feel like going back and so did stay in the park that night; patient says he finds his mother very difficult to work with and wants to move out of the house and get his own place to live. Regarding medication patient says that he feels he will be fine without it; account underwriter reviewed his presentation during past admissions during which time he was floridly manic and psychotic however patient maintains he thinks he will be fine without medication. That said he agrees to continue Clozaril and Depakote but just Clozaril at a slightly lower dose. Denies drug use other than cannabis Formulation/clinical reasoning: Currently patient is cooperative and organized in speech and behavior; report of disorganized behavior in the community is somewhat vague and will need collateral. Will monitor patient for now. Patient is currently on a Guillermo, due to be renewed in September. While the Guillermo order ostensibly gives account underwriter court authority to insist on Clozaril 400 mg, patient is in good behavioral and impulse control, organized in speech and behavior, talking in a logical way and denies any psychotic symptoms and none observed. For this reason account underwriter agrees to patient is demand/request for a lower dose of Clozaril 300 mg q.h.s. (down from 400 mg); will reach out to patient's outpatient provider to discuss. Patient has somewhat unrealistic expectations about being able to get a place to live on his own. Hospital course: 09/25 Patient mostly isolative, staying in his room; denies depression but expresses frustration with not being able to make his own decisions about where he wants to live. Department Traffic Freight Router discussed that he is allowed to make such decisions but provided examples of ways patient could go about this, working with [facility], etc. how challenging it will be to do this on his own from a group home... Patient however currently implacable. Patient taking Clozaril; says he is fine with current dose; denies any psychiatric symptoms, any AVH, and no paranoid delusions expressed or that could be solicited 09/26 remains stable, organized behavior and speech and in good behavioral control. Remains adherent with medication; remains focused on finding his own place to live even if that means going to a group home. Reaching out to [facility] team 09/29 pt reports doing well; no psychotic symptoms. Pt discussed ways he can increase independence from family and how to navigate [facility] team. Discussed therapy; discussed housing. 09/30 Patient remains in good behavioral and impulse control; cooperative on approach, logical and linear in discussion. Denies any psychiatric/psychotic symptoms and none observed. Patient reports feeling good; remains focused on getting his own place to live. Social work reaching out to [facility] however not sure their involvement. -Department Traffic Freight Router discussed case with patient's outpatient provider Dr. Means who reports that there was never any decisions/plan to lower patient's clozapine; they did lower him off his antidepressant which made Dr. Means think they might need to go up on his clozapine if anything. Department Traffic Freight Router discussed how patient has wanted a lower dose and so far has remained stable at this lower dose; Dr. Means feels that it is reasonable to give patient a chance to see if he can remain stable on lower dose and that he will just read titrated if needed as an outpatient Plan: CV Q 15 minute checks Clozaril 300 mg q.h.s. (normally on 400 mg) Clozaril 50 mg daily Depakote 500 mg q.h.s. Continue levothyroxine at 100 mcg daily TSH WNL 3.13. Continue Metoprolol 12.5 mgs BID Patient educated on: diagnosis and medication risk/benefits Informed Consent: understands Reason for continued inpatient stay Substantial Risk for: stable for discharge Time Spent With Patient Time: Total time managing care of this patient today ____ minutes.
--- NOTE | 2024-09-30 11:16 | MHC.CARE ---
Call from patient's Rashaad's Order Monitor who has been trying to reach patient. Stated he needs to speak with patient and the psychiatrist about medications as there is an upcoming review. Citlali Parker [phone]
[2024-09-30 20:00] VITALS: BP 150/89; PULSE 99; TEMP 36.1; O2SAT 96
[2024-09-30] MEDS: Divalproex Sodium 500 MG TABLET.DR PO (20:50)
[2024-09-30] MEDS: traZODone HCL 50 MG TABLET PO (20:50)
[2024-09-30] MEDS: cloZAPine 100 MG TABLET 300 MG PO (20:50)
[2024-09-30] MEDS: Calcium Carbonate 750 MG TAB.CHEW 500 MG PO (21:12)
[2024-09-30] MEDS: Acetaminophen 325 MG TABLET 650 MG PO (21:12)
[2024-10-01] MEDS: Levothyroxine Sodium 100 MCG TABLET PO (06:20)
[2024-10-01 08:00] VITALS: BP 102/60; PULSE 97; TEMP 36.5; O2SAT 99
[2024-10-01] MEDS: cloZAPine 25 MG TABLET 50 MG PO (08:32)
[2024-10-01] MEDS: Metoprolol Tartrate 12.5 MG HALFTAB PO ×2 (08:32→21:13)
[2024-10-01 08:45] LABS: Neut%MD 59.1 %; Neutrophils Absolute Auto 4.8 x10*3/uL (2.0-8.3); WBCANC 8.1 X10*3/uL
--- NOTE | 2024-10-01 09:57 | HO.PSYCHPN ---
Subjective Subjective Date of Service: 10/01/24 Reason For Visit: disorganized Interim History: met with patient; discussed with team pt says his mood is good...great.. Pt expresses much hope that he move away from his mothers...pt currently does not want to move back to his mothers house and says he is strongly considering going to a long-term. Spinner Concrete Pipe strongly trying to dissuade patient from this plan and pt is considering. Spinner Concrete Pipe discussed that Dr. Means was not planning to lower Clozaril; patient had no opinion on this. radiation control worker and typewriter operator automatic talked with patient's mother, patient's guardian who expressed significant concerns. She is going to court this Sunday to have the Guillermo order continued. She shared how dysregulated patient can get when he is off his medications and says that he goes to a long-term by himself he will end up not taking medications. She insists that he return to her house. Spinner Concrete Pipe agreed that patient needs to be on medications, that the Guillermo order should be continued and that he will likely quickly decompensate if he stops taking his medications; however typewriter operator automatic shared that patient has remained in good behavioral and impulse control, organized in speech and behavior, without any psychotic symptoms at all and appropriate with peers and staff... Taking his medications as prescribed. And because of this (and other reasons), typewriter operator automatic has no way to force patient to return to his mother's house. Mental Status Exam Mental Status Exam Narrative: Pt is alert and oriented; behavior is more engaged, attending groups, cooperative, friendly, calm and in good behavioral control; patient is not in distress; dressed in hospital attire with adequate hygiene and grooming; mood is described as good...great and affect congruent, brighter; eye contact appropriate; Speech is normal rate, volume and prosody and not pressured; no psychomotor agitation/retardation present; thought process is organized and goal directed; Thought content is on tx; otherwise pertinent to relevant topics and without any delusional content, paranoid ideations or grandiosity; denies any SI/HI. Denies AVH and there is no evidence of perceptual disturbance. Patients insight and judgment impaired in the sense that patient does not appreciate the degree to which he decompensates when off medications; otherwise, appear intact Diagnostics Vital Signs (24Hr): Vital Signs - 24 hr 09/30/24 20:00 10/01/24 08:00 Temperature 96.9 F 97.7 F Pulse Rate 99 97 Blood Pressure 150/89 H 102/60 Pulse Oximetry 96 99 Oxygen Delivery Method Room Air Room Air BMI result Body Mass Index 29.5 Labs 09/24/24 07:47 09/24/24 07:47 Labs: Laboratory Results - last 48 hr 10/01/24 08:39 [employer] Neuts (auto) 4.8 Medications Medications Current Medications Acetaminophen (Acetaminophen 325 Mg Tablet) 650 mg PO Q6H PRN PRN Reason: Headache/Pain, Scale 1-10 Last Admin: 09/30/24 21:12 Dose: 650 mg Al Hydroxide/Mg Hydroxide (Magnesium Hydrox/Alum Hydrox 30 Ml Oral.Susp) 30 ml PO Q6H PRN PRN Reason: Heartburn/Nausea Calcium Carbonate (Calcium Carbonate 750 Mg Tab.Chew) 500 mg PO Q6H PRN PRN Reason: Heartburn Last Admin: 09/30/24 21:12 Dose: 500 mg Clonidine HCl (Clonidine Hcl 0.1 Mg Tablet) 0.1 mg PO Q4H PRN; Protocol PRN Reason: moderate anxiety Clozapine (Clozapine 25 Mg Tablet) 50 mg PO DAILY [facility] Last Admin: 10/01/24 08:32 Dose: 50 mg Clozapine (Clozapine 100 Mg Tablet) 300 mg PO BEDTIME [facility] Last Admin: 09/30/24 20:50 Dose: 300 mg Divalproex Sodium (Divalproex Sodium 500 Mg Tablet.Dr) 500 mg PO BEDTIME [facility] Last Admin: 09/30/24 20:50 Dose: 500 mg Hydroxyzine HCl (Hydroxyzine Hcl 25 Mg Tablet) 25 mg PO Q6H PRN PRN Reason: mild anxiety Levothyroxine Sodium (Levothyroxine Sodium 100 Mcg Tablet) 100 mcg PO DAILY@0600 [facility] Last Admin: 10/01/24 06:20 Dose: 100 mcg Magnesium Hydroxide (Milk Of Magnesia 30 Ml Oral.Susp) 30 ml PO DAILY PRN PRN Reason: Constipation Metoprolol Tartrate (Metoprolol Tartrate 12.5 Mg Halftab) 12.5 mg PO BID [facility]; Protocol Last Admin: 10/01/24 08:32 Dose: 12.5 mg Nicotine (Nicotine 21 Mg Patch.Td24) 21 mg TRANSDERMA DAILY PRN PRN Reason: smoking cessation Olanzapine (Olanzapine 5 Mg Tablet) 5 mg PO TID PRN PRN Reason: agitation Trazodone HCl (Trazodone Hcl 50 Mg Tablet) 50 mg PO BEDTIME MRX1 PRN PRN Reason: Insomnia Last Admin: 09/30/24 20:50 Dose: 50 mg Allergies Allergies Allergy/AdvReac Type Severity Reaction Status Date / Time Penicillins Allergy Anaphylaxis Verified 01/19/23 23:15 Assessment & Plan Assessment & Plan (1) Schizoaffective disorder: Status: Acute Code(s): F25.9 - Schizoaffective disorder, unspecified (2) Traumatic brain injury: Status: Acute Code(s): S06.9XAA - Unspecified intracranial injury with loss of consciousness status unknown, initial encounter Plan HPI: Patient is a 34-year-old male with history of schizoaffective disorder, bipolar type, on Community Guillermo order TBI, past psychiatric admissions including Efrenaylar who presents for some reportedly disorganized behavior in the community. Patient's family members got patient to the hospital; they reported vague disorganized behaviors such as going out to the park and staying there overnight. Patient disagrees. Says that he has been at baseline although being tapered off his Clozaril by Dr. Means, his remained consistent with taking his medications and says the [facility] was giving him his regular doses any way. Denies any AVH; denies any SI or HI; denies any paranoid delusions and none expressed. Patient said that he did leave the house the other day around 930 in the morning to hang out at [employer], needing to get some space from his family, mother's and brother's; he said he did not feel like going back and so did stay in the park that night; patient says he finds his mother very difficult to work with and wants to move out of the house and get his own place to live. Regarding medication patient says that he feels he will be fine without it; typewriter operator automatic reviewed his presentation during past admissions during which time he was floridly manic and psychotic however patient maintains he thinks he will be fine without medication. That said he agrees to continue Clozaril and Depakote but just Clozaril at a slightly lower dose. Denies drug use other than cannabis Formulation/clinical reasoning: Currently patient is cooperative and organized in speech and behavior; report of disorganized behavior in the community is somewhat vague and will need collateral. Will monitor patient for now. Patient is currently on a Guillermo, due to be renewed in September. While the Guillermo order ostensibly gives typewriter operator automatic court authority to insist on Clozaril 400 mg, patient is in good behavioral and impulse control, organized in speech and behavior, talking in a logical way and denies any psychotic symptoms and none observed. For this reason typewriter operator automatic agrees to patient is demand/request for a lower dose of Clozaril 300 mg q.h.s. (down from 400 mg); will reach out to patient's outpatient provider to discuss. Patient has somewhat unrealistic expectations about being able to get a place to live on his own. Hospital course: 09/25 Patient mostly isolative, staying in his room; denies depression but expresses frustration with not being able to make his own decisions about where he wants to live. Spinner Concrete Pipe discussed that he is allowed to make such decisions but provided examples of ways patient could go about this, working with [facility], etc. how challenging it will be to do this on his own from a long-term... Patient however currently implacable. Patient taking Clozaril; says he is fine with current dose; denies any psychiatric symptoms, any AVH, and no paranoid delusions expressed or that could be solicited 09/26 remains stable, organized behavior and speech and in good behavioral control. Remains adherent with medication; remains focused on finding his own place to live even if that means going to a long-term. Reaching out to [facility] team 09/29 pt reports doing well; no psychotic symptoms. Pt discussed ways he can increase independence from family and how to navigate [facility] team. Discussed therapy; discussed housing. 09/30 Patient remains in good behavioral and impulse control; cooperative on approach, logical and linear in discussion. Denies any psychiatric/psychotic symptoms and none observed. Patient reports feeling good; remains focused on getting his own place to live. Social work reaching out to [facility] however not sure their involvement. -Spinner Concrete Pipe discussed case with patient's outpatient provider Dr. Means who reports that there was never any decisions/plan to lower patient's clozapine; they did lower him off his antidepressant which made Dr. Means think they might need to go up on his clozapine if anything. Spinner Concrete Pipe discussed how patient has wanted a lower dose and so far has remained stable at this lower dose; Dr. Menas feels that it is reasonable to give patient a chance to see if he can remain stable on lower dose and that he will just read titrated if needed as an outpatient 6/ pt says his mood is good...great.. Pt expresses much hope that he move away from his mothers...pt currently does not want to move back to his mothers house and says he is strongly considering going to a long-term. Spinner Concrete Pipe strongly trying to dissuade patient from this plan and pt is considering. Spinner Concrete Pipe discussed that Dr. Means was not planning to lower Clozaril; patient had no opinion on this. radiation control worker and typewriter operator automatic talked with patient's mother, patient's guardian who expressed significant concerns. She is going to court this Sunday to have the Guillermo order continued. She shared how dysregulated patient can get when he is off his medications and says that he goes to a long-term by himself he will end up not taking medications. She insists that he return to her house. Spinner Concrete Pipe agreed that patient needs to be on medications, that the Guillermo order should be continued and that he will likely quickly decompensate if he stops taking his medications; however typewriter operator automatic shared that patient has remained in good behavioral and impulse control, organized in speech and behavior, without any psychotic symptoms at all and appropriate with peers and staff... Taking his medications as prescribed. And because of this (and other reasons), typewriter operator automatic has no way to force patient to return to his mother's house. -at this time, patient does not rise to the level of involuntary commitment; on the contrary he remains fully stable, and as mentioned numerous times organized speech and behavior and in good behavioral control. Patient would like to discharge this Sunday. At this time he does not want to return to his mother's but prefers to go to a long-term. Spinner Concrete Pipe and social media strategist continued to challenge this plan. Patient's mother plans to visit patient and encourage him to return home with her. Plan: CV Q 15 minute checks Clozaril 300 mg q.h.s. (normally on 400 mg) Clozaril 50 mg daily Depakote 500 mg q.h.s. Continue levothyroxine at 100 mcg daily TSH WNL 3.13. Continue Metoprolol 12.5 mgs BID Patient educated on: diagnosis, medication risk/benefits and therapeutic strategies Informed Consent: understands, does not understand and further education needed Reason for continued inpatient stay Substantial Risk for: stable for discharge Time Spent With Patient Time: Total time managing care of this patient today ____ minutes.
[2024-10-01 13:03] LABS: Valproate 52.4 mcg/mL (50.0-100.0)
[2024-10-01 19:47] VITALS: BP 172/90; PULSE 113; RESP 16; TEMP 36.4; O2SAT 95
[2024-10-01 21:00] VITALS: BP 131/68; PULSE 124; RESP 16; TEMP 37.1; O2SAT 97
[2024-10-01] MEDS: Divalproex Sodium 500 MG TABLET.DR PO (21:13)
[2024-10-01] MEDS: cloZAPine 100 MG TABLET 300 MG PO (21:13)
[2024-10-01] MEDS: traZODone HCL 50 MG TABLET PO (21:13)
[2024-10-01] MEDS: Acetaminophen 325 MG TABLET 650 MG PO (21:16)
[2024-10-02] MEDS: Levothyroxine Sodium 100 MCG TABLET PO (06:39)
[2024-10-02 07:00] VITALS: BMI 29.9
[2024-10-02 08:00] VITALS: BP 109/57; PULSE 86; RESP 16; TEMP 36.7; O2SAT 98
[2024-10-02 08:42] VITALS: BP 124/79
[2024-10-02] MEDS: cloZAPine 25 MG TABLET 50 MG PO (08:43)
[2024-10-02] MEDS: Metoprolol Tartrate 12.5 MG HALFTAB PO ×2 (08:45→21:02)
--- NOTE | 2024-10-02 11:57 | HO.PSYCHPN ---
Subjective Subjective Date of Service: 10/02/24 Reason For Visit: disorganized Interim History: Met with patient; discussed with team pt had mature, logical discussion about his options and agrees to return to [facility]. During the day, his plan is to go the [employer] program/mental health club...from there he will research places he can rent with the plan to move out on his own...pt does not want a VNA, expressing desire to be more independent and inquires about bubble packs which organize his meds so that he can take them on his own. Pt remains in good mood, good behavioral/impulse control, organized in speech/behavior, appropriate with peers and engaged. Mental Status Exam Mental Status Exam Narrative: Pt is alert and oriented; behavior is more engaged, attending groups, cooperative, friendly, calm and in good behavioral control; patient is not in distress; dressed in hospital attire with adequate hygiene and grooming; mood is described as good and affect congruent, brighter; eye contact appropriate; Speech is normal rate, volume and prosody and not pressured; no psychomotor agitation/retardation present; thought process is organized and goal directed; Thought content is on tx; otherwise pertinent to relevant topics and without any delusional content, paranoid ideations or grandiosity; denies any SI/HI. Denies AVH and there is no evidence of perceptual disturbance. Patients insight and judgment are intact Diagnostics Vital Signs (24Hr): Vital Signs - 24 hr 10/01/24 19:47 10/01/24 21:00 10/02/24 08:00 Temperature 97.6 F 98.7 F 98.1 F Pulse Rate 113 H 124 H 86 Respiratory Rate 16 16 16 Blood Pressure 172/90 H 131/68 109/57 L Pulse Oximetry 95 97 98 Oxygen Delivery Method Room Air Room Air Room Air 10/02/24 08:42 Temperature Pulse Rate Respiratory Rate Blood Pressure 124/79 Pulse Oximetry Oxygen Delivery Method BMI result Body Mass Index 29.5 Labs 09/24/24 07:47 09/24/24 07:47 Labs: Laboratory Results - last 48 hr 10/01/24 08:39 Absolute Neuts (auto) 4.8 Valproic Acid 52.4 Medications Medications Current Medications Acetaminophen (Acetaminophen 325 Mg Tablet) 650 mg PO Q6H PRN PRN Reason: Headache/Pain, Scale 1-10 Last Admin: 10/01/24 21:16 Dose: 650 mg Al Hydroxide/Mg Hydroxide (Magnesium Hydrox/Alum Hydrox 30 Ml Oral.Susp) 30 ml PO Q6H PRN PRN Reason: Heartburn/Nausea Calcium Carbonate (Calcium Carbonate 750 Mg Tab.Chew) 500 mg PO Q6H PRN PRN Reason: Heartburn Last Admin: 09/30/24 21:12 Dose: 500 mg Clonidine HCl (Clonidine Hcl 0.1 Mg Tablet) 0.1 mg PO Q4H PRN; Protocol PRN Reason: moderate anxiety Clozapine (Clozapine 25 Mg Tablet) 50 mg PO DAILY [facility] Last Admin: 10/02/24 08:43 Dose: 50 mg Clozapine (Clozapine 100 Mg Tablet) 300 mg PO BEDTIME [facility] Last Admin: 10/01/24 21:13 Dose: 300 mg Divalproex Sodium (Divalproex Sodium 500 Mg Tablet.Dr) 500 mg PO BEDTIME [facility] Last Admin: 10/01/24 21:13 Dose: 500 mg Hydroxyzine HCl (Hydroxyzine Hcl 25 Mg Tablet) 25 mg PO Q6H PRN PRN Reason: mild anxiety Levothyroxine Sodium (Levothyroxine Sodium 100 Mcg Tablet) 100 mcg PO DAILY@0600 [facility] Last Admin: 10/02/24 06:39 Dose: 100 mcg Magnesium Hydroxide (Milk Of Magnesia 30 Ml Oral.Susp) 30 ml PO DAILY PRN PRN Reason: Constipation Metoprolol Tartrate (Metoprolol Tartrate 12.5 Mg Halftab) 12.5 mg PO BID [facility]; Protocol Last Admin: 10/02/24 08:45 Dose: 12.5 mg Nicotine (Nicotine 21 Mg Patch.Td24) 21 mg TRANSDERMA DAILY PRN PRN Reason: smoking cessation Olanzapine (Olanzapine 5 Mg Tablet) 5 mg PO TID PRN PRN Reason: agitation Trazodone HCl (Trazodone Hcl 50 Mg Tablet) 50 mg PO BEDTIME MRX1 PRN PRN Reason: Insomnia Last Admin: 10/01/24 21:13 Dose: 50 mg Allergies Allergies Allergy/AdvReac Type Severity Reaction Status Date / Time Penicillins Allergy Anaphylaxis Verified 01/19/23 23:15 Assessment & Plan Assessment & Plan (1) Schizoaffective disorder: Status: Acute Code(s): F25.9 - Schizoaffective disorder, unspecified (2) Traumatic brain injury: Status: Acute Code(s): S06.9XAA - Unspecified intracranial injury with loss of consciousness status unknown, initial encounter Plan HPI: Patient is a 34-year-old male with history of schizoaffective disorder, bipolar type, on Community Guillermo order TBI, past psychiatric admissions including [facility] who presents for some reportedly disorganized behavior in the community. Patient's family members got patient to the hospital; they reported vague disorganized behaviors such as going out to the park and staying there overnight. Patient disagrees. Says that he has been at baseline although being tapered off his Clozaril by Dr. Means, his remained consistent with taking his medications and says the VNA was giving him his regular doses any way. Denies any AVH; denies any SI or HI; denies any paranoid delusions and none expressed. Patient said that he did leave the house the other day around 930 in the morning to hang out at [employer], needing to get some space from his family, mother's and brother's; he said he did not feel like going back and so did stay in the park that night; patient says he finds his mother very difficult to work with and wants to move out of the house and get his own place to live. Regarding medication patient says that he feels he will be fine without it; play writer reviewed his presentation during past admissions during which time he was floridly manic and psychotic however patient maintains he thinks he will be fine without medication. That said he agrees to continue Clozaril and Depakote but just Clozaril at a slightly lower dose. Denies drug use other than cannabis Formulation/clinical reasoning: Currently patient is cooperative and organized in speech and behavior; report of disorganized behavior in the community is somewhat vague and will need collateral. Will monitor patient for now. Patient is currently on a Guillermo, due to be renewed in September. While the Guillermo order ostensibly gives play writer court authority to insist on Clozaril 400 mg, patient is in good behavioral and impulse control, organized in speech and behavior, talking in a logical way and denies any psychotic symptoms and none observed. For this reason play writer agrees to patient is demand/request for a lower dose of Clozaril 300 mg q.h.s. (down from 400 mg); will reach out to patient's outpatient provider to discuss. Patient has somewhat unrealistic expectations about being able to get a place to live on his own. Hospital course: 09/25 Patient mostly isolative, staying in his room; denies depression but expresses frustration with not being able to make his own decisions about where he wants to live. Display Decorator discussed that he is allowed to make such decisions but provided examples of ways patient could go about this, working with [facility], etc. how challenging it will be to do this on his own from a group home... Patient however currently implacable. Patient taking Clozaril; says he is fine with current dose; denies any psychiatric symptoms, any AVH, and no paranoid delusions expressed or that could be solicited 09/26 remains stable, organized behavior and speech and in good behavioral control. Remains adherent with medication; remains focused on finding his own place to live even if that means going to a group home. Reaching out to [facility] team 09/29 pt reports doing well; no psychotic symptoms. Pt discussed ways he can increase independence from family and how to navigate [facility] team. Discussed therapy; discussed housing. 09/30 Patient remains in good behavioral and impulse control; cooperative on approach, logical and linear in discussion. Denies any psychiatric/psychotic symptoms and none observed. Patient reports feeling good; remains focused on getting his own place to live. Social work reaching out to [facility] however not sure their involvement. -Display Decorator discussed case with patient's outpatient provider Dr. Means who reports that there was never any decisions/plan to lower patient's clozapine; they did lower him off his antidepressant which made Dr. Means think they might need to go up on his clozapine if anything. Display Decorator discussed how patient has wanted a lower dose and so far has remained stable at this lower dose; Dr. Means feels that it is reasonable to give patient a chance to see if he can remain stable on lower dose and that he will just read titrated if needed as an outpatient 10/01 pt says his mood is good...great.. Pt expresses much hope that he move away from his mothers...pt currently does not want to move back to his mothers house and says he is strongly considering going to a group home. Display Decorator strongly trying to dissuade patient from this plan and pt is considering. Display Decorator discussed that Dr. Means was not planning to lower Clozaril; patient had no opinion on this. tray room worker and play writer talked with patient's mother, patient's guardian who expressed significant concerns. She is going to court this Sunday to have the Guillermo order continued. She shared how dysregulated patient can get when he is off his medications and says that he goes to a group home by himself he will end up not taking medications. She insists that he return to her house. Display Decorator agreed that patient needs to be on medications, that the Guillermo order should be continued and that he will likely quickly decompensate if he stops taking his medications; however play writer shared that patient has remained in good behavioral and impulse control, organized in speech and behavior, without any psychotic symptoms at all and appropriate with peers and staff... Taking his medications as prescribed. And because of this (and other reasons), play writer has no way to force patient to return to his mother's house. 10/02 pt had mature, logical discussion about his options and agrees to return to [facility]. During the day, his plan is to go the [employer] day program/mental health club...from there he will research places he can rent with the plan to move out on his own...pt does not want a VNA, expressing desire to be more independent and inquires about bubble packs which organize his meds so that he can take them on his own. Pt remains in good mood, good behavioral/impulse control, organized in speech/behavior, appropriate with peers and engaged. -at this time, patient does not rise to the level of involuntary commitment; on the contrary he remains fully stable, and as mentioned numerous times organized speech and behavior and in good behavioral control. Patient would like to discharge this Sunday. At this time he agrees to return to [facility] but from there wants to pursue independence. . Plan: CV Q 15 minute checks Clozaril 300 mg q.h.s. (normally on 400 mg) Clozaril 50 mg daily Depakote 500 mg q.h.s. Continue levothyroxine at 100 mcg daily TSH WNL 3.13. Continue Metoprolol 12.5 mgs BID Patient educated on: diagnosis, medication risk/benefits and therapeutic strategies Informed Consent: understands Reason for continued inpatient stay Substantial Risk for: stable for discharge Time Spent With Patient Time: Total time managing care of this patient today ____ minutes.
[2024-10-02 20:00] VITALS: BP 139/90; PULSE 110; RESP 16; TEMP 36.9; O2SAT 98
[2024-10-02] MEDS: cloZAPine 100 MG TABLET 300 MG PO (21:01)
[2024-10-02] MEDS: Divalproex Sodium 500 MG TABLET.DR PO (21:02)
[2024-10-02] MEDS: Acetaminophen 325 MG TABLET 650 MG PO (21:06)
[2024-10-02] MEDS: Calcium Carbonate 750 MG TAB.CHEW 500 MG PO (21:06)
[2024-10-03] MEDS: Levothyroxine Sodium 100 MCG TABLET PO (06:31)
[2024-10-03 08:58] VITALS: BP 114/58; PULSE 93; RESP 16; TEMP 36.7; O2SAT 95
[2024-10-03] MEDS: cloZAPine 25 MG TABLET 50 MG PO (09:31)
[2024-10-03] MEDS: Metoprolol Tartrate 12.5 MG HALFTAB PO (09:43)
--- NOTE | 2024-10-03 11:20 | PM.PSYDC ---
DS: Providers Provider Date of Service: 10/03/24 Date of admission: 09/23/24 12:51 Date of discharge: 10/03/24 Primary care physician: Unknown Physician Attending physician on admission: Catrachito Ortiz Consults: 09/23/24 14:01 Consult to Hospitalist Routine Comment: Consulting Provider[place] [facility] Reason For Exam: admission physical Attending physician on discharge: Catrachito Ortiz DS: Diagnosis Discharge Diagnosis (1) Schizoaffective disorder: Status: Acute (2) Traumatic brain injury: Status: Acute DS: Medications Discharge Medications Home Medications: Home Medications ?Medication ?Instructions ?Recorded ?Confirmed clozapine 200 mg tablet (Clozaril) 400 mg PO BEDTIME 01/20/23 09/23/24 clozapine 50 mg tablet (Clozaril) 50 mg PO QAM 01/20/23 09/23/24 levothyroxine 100 mcg tablet 100 mcg PO DAILY 01/20/23 09/23/24 (Synthroid) metoprolol tartrate 25 mg tablet 12.5 mg PO BID 01/20/23 09/23/24 divalproex 250 mg tablet,delayed 500 mg PO BEDTIME 09/23/24 09/23/24 release (Depakote) Previous Rx's ?Medication ?Instructions ?Recorded fluoxetine 20 mg capsule 40 mg (2 x 20 mg) PO DAILY #0 caps 02/01/23 Mental Status Exam Mental Status Exam Narrative: Pt is alert and oriented; behavior is more engaged, attending groups, cooperative, friendly, calm and in good behavioral control; patient is not in distress; adequate hygiene and grooming; mood is described as good and affect congruent, brighter; eye contact appropriate; Speech is normal rate, volume and prosody and not pressured; no psychomotor agitation/retardation present; thought process is organized and goal directed; Thought content is on tx; otherwise pertinent to relevant topics and without any delusional content, paranoid ideations or grandiosity; denies any SI/HI. Denies AVH and there is no evidence of perceptual disturbance. Patients insight and judgment are intact Data Data Completed and Pending Completed studies during hospitalization [Text1]: 10/01/24 08:39 Absolute Neuts (auto) 4.8 Valproic Acid 52.4 DS: Summary Hospital Course Hospital Course: HPI: Patient is a 34-year-old male with history of schizoaffective disorder, bipolar type, on Community Guillermo order TBI, past psychiatric admissions including August who presents for some reportedly disorganized behavior in the community. Patient's family members got patient to the hospital; they reported vague disorganized behaviors such as going out to the park and staying there overnight. Patient disagrees. Says that he has been at baseline although being tapered off his Clozaril by Dr. Means, his remained consistent with taking his medications and says the VNA was giving him his regular doses any way. Denies any AVH; denies any SI or HI; denies any paranoid delusions and none expressed. Patient said that he did leave the house the other day around 930 in the morning to hang out at [employer], needing to get some space from his family, mother's and brother's; he said he did not feel like going back and so did stay in the park that night; patient says he finds his mother very difficult to work with and wants to move out of the house and get his own place to live. Regarding medication patient says that he feels he will be fine without it; database report writer reviewed his presentation during past admissions during which time he was floridly manic and psychotic however patient maintains he thinks he will be fine without medication. That said he agrees to continue Clozaril and Depakote but just Clozaril at a slightly lower dose. Denies drug use other than cannabis Formulation/clinical reasoning: Currently patient is cooperative and organized in speech and behavior; report of disorganized behavior in the community is somewhat vague and will need collateral. Will monitor patient for now. Patient is currently on a Guillermo, due to be renewed in September. While the Guillermo order ostensibly gives database report writer court authority to insist on Clozaril 400 mg, patient is in good behavioral and impulse control, organized in speech and behavior, talking in a logical way and denies any psychotic symptoms and none observed. For this reason database report writer agrees to patients demand/request for a lower dose of Clozaril 300 mg q.h.s. (down from 400 mg). While patient has somewhat unrealistic expectations about being able to get a place to live on his own, has urge to become more dependent is appropriate and encouraging. Hospital course: 09/25 Patient mostly isolative, staying in his room; denies depression but expresses frustration with not being able to make his own decisions about where he wants to live. [employer] discussed that he is allowed to make such decisions but provided examples of ways patient could go about this, working with [facility], etc. how challenging it will be to do this on his own from a custodial... Patient however currently implacable. Patient taking Clozaril; says he is fine with current dose; denies any psychiatric symptoms, any AVH, and no paranoid delusions expressed or that could be solicited 09/26 remains stable, organized behavior and speech and in good behavioral control. Remains adherent with medication; remains focused on finding his own place to live even if that means going to a custodial. Reaching out to [facility] team 09/29 pt reports doing well; no psychotic symptoms. Pt discussed ways he can increase independence from family and how to navigate [facility] team. Discussed therapy; discussed housing. 09/30 Patient remains in good behavioral and impulse control; cooperative on approach, logical and linear in discussion. Denies any psychiatric/psychotic symptoms and none observed. Patient reports feeling good; remains focused on getting his own place to live. Social work reaching out to [facility] however not sure their involvement. -[employer] discussed case with patient's outpatient provider Dr. Means who reports that there was never any decisions/plan to lower patient's clozapine; they did lower him off his antidepressant which made Dr. Means think they might need to go up on his clozapine if anything. [employer] discussed how patient has wanted a lower dose and so far has remained stable at this lower dose; Dr. Means feels that it is reasonable to give patient a chance to see if he can remain stable on lower dose and that he will just read titrated if needed as an outpatient 10/01 pt says his mood is good...great.. Pt expresses much hope that he move away from his mothers...pt currently does not want to move back to his mothers house and says he is strongly considering going to a custodial. [employer] strongly trying to dissuade patient from this plan and pt is considering. [employer] discussed that Dr. Menas was not planning to lower Clozaril; patient had no opinion on this. hospice social worker and database report writer talked with patient's mother, patient's guardian who expressed significant concerns. She is going to court this Sunday to have the Guillermo order continued. She shared how dysregulated patient can get when he is off his medications and says that he goes to a custodial by himself he will end up not taking medications. She insists that he return to her house. [employer] agreed that patient needs to be on medications, that the Guillermo order should be continued and that he will likely quickly decompensate if he stops taking his medications; however database report writer shared that patient has remained in good behavioral and impulse control, organized in speech and behavior, without any psychotic symptoms at all and appropriate with peers and staff... Taking his medications as prescribed. And because of this (and other reasons), database report writer has no way to force patient to return to his mother's house. 10/02 pt had mature, logical discussion about his options and agrees to return to [facility]. During the day, his plan is to go the [employer], day program/mental health club...from there he will research places he can rent with the plan to move out on his own...pt does not want a VNA, expressing desire to be more independent and inquires about bubble packs which organize his meds so that he can take them on his own. Pt remains in good mood, good behavioral/impulse control, organized in speech/behavior, appropriate with peers and engaged. Patient does not rise to the level of involuntary commitment; on the contrary he remains fully stable, and as mentioned numerous times, with organized speech/behavior and in good behavioral control. Patient would like to discharge this Sunday and agrees to return to [facility] for now. His hope remains to pursue independence. Medications: Clozaril 300 mg q.h.s. (was on 400 mg) Continue Clozaril 50 mg daily Continue Depakote 500 mg q.h.s. Continue levothyroxine at 100 mcg daily TSH WNL 3.13. Time spent discussing smoking cessation with patient: 3 to 10 minutes Status at Discharge Functional status at discharge: independent ambulation Overall status at discharge: patient is back to baseline Time Spent with Patient Time attestation: Total time managing care of this patient today _50___ minutes. Time spent: Greater than 30 minutes Specific discharge activities: Met with patient; discussed with team; prescriptions; charting; family meeting Discharge Plan Discharge Anticipated Discharge Date/Time: 10/03/24 12:30 Patient Disposition: Home, Self-Care Discharge Diagnosis: SchizoAffective disorder, bipolar type Referrals: [facility] Adult Comprehensive Assessment w ANEGLO PRATHER [Other] - 10/09/24 10:00 am (This is an intake for therapy.) [facility] Psychiatry with Dr. Macedo [Other] - 11/05/24 2:40 pm (In person appointment. ) [facility] ACCS Yellow Team Siddharth Greco [Other] - 1 Day (Social work is highly recommending a comprehensive behavioral plan be created and implemented with Adelso, including identifying ways the outpt team can support Adelso in engaging in daily activities that support his desire for independence, including, life skills, social engagement outside of the family home, self advocacy and learning to manage life stressors. At this time Adelso and his mother have expressed frustration with current community support person and are advocating for more daily support. A referral has been placed with [facility] which Adelso has expressed interest in, please follow up with this referral. ) [facility] [Other] - 1 Day (A referral has been sent for the [facility] and you do qualify for services. Please follow up with them to set up an appointment for orientation. ) [facility] Visiting RN [Other] - 10/03/24 ( RN will plan to see Ct on 10/03/24 after D/C. ) Physician,Ignacia J [Primary Care Provider] - 1 Week (Please call your PCP to [facility] a follow-up appt within 1 wk. If you do not have a PCP you may contact [facility] [phone] [place] [address] ) Discharge Medications: New trazodone 50 mg Tablet 50 mg PO BEDTIME PRN (Reason: Insomnia) 30 Days Qty: 30 0RF Continued levothyroxine [Synthroid] 100 mcg tablet 100 mcg PO DAILY 30 Days Qty: 30 0RF metoprolol tartrate 25 mg tablet 12.5 mg PO BID 30 Days Qty: 30 0RF clozapine [Clozaril] 50 mg tablet 50 mg PO QAM 30 Days Qty: 30 0RF Rx Instructions: 50mg in the AM, 300mg @ bedtime Changed divalproex [Depakote] 250 mg tablet,delayed release (DR/EC) 500 mg PO BEDTIME 30 Days Qty: 60 0RF clozapine 100 mg tablet 300 mg PO BEDTIME 30 Days Qty: 90 0RF Discontinued fluoxetine 20 mg Capsule 40 mg PO DAILY Qty: 0 0RF Discharge Orders: Discharge Order (Routine); Ordered 10/03/24 Ordered By: Catrachito Ortiz Diet: Regular diet Activity on Discharge: As tolerated Stand Alone Forms: Patient Portal Discharge page, Community Support Print Language: Honduran Care Plan Goals: Maintain mood and safe behaviors Take medications as prescribed Practice coping skills Continue with outpatient providers and reach out to them as needed Health Concerns: Mood stability and behaviors Plan of Treatment: Follow up with your PCP, psychiatric provider and other outpatient providers regarding above concerns Take medications as prescribed Assessment: Risk assessment at time of discharge:? Patient was interviewed prior to discharge and found to be fully oriented and without any SI or HI. Patient has improved insight and judgment and wants to continue treatment. Patient is not in imminent risk of harm to self or others and has a safety plan that includes presenting to the closest ER or calling 911 if feeling unsafe.? Patient has been observed closely by nursing and unit staff throughout admission; patient has not engaged in any behaviors that suggest dangerousness to self or others and has demonstrated appropriate behaviors and impulse control Discharge Date/Time: 10/03/24 13:30
== END 2024-10-03 13:30 | disposition home or self-care (01) | DRG 750 ==
PROVIDERS: Nurse Practitioner Family; Admitting Provider Psychiatry & Neurology Psychiatry; Visit Provider Psychiatry & Neurology Psychiatry
DX: F25.0 Schizoaffective disorder, bipolar type (principal); E03.9 Hypothyroidism, unspecified; F17.210 Nicotine dependence, cigarettes, uncomplicated; Z59.02 Unsheltered homelessness; I10 Essential (primary) hypertension; Z71.6 Tobacco abuse counseling; Z87.820 Personal history of traumatic brain injury; Z79.890 Hormone replacement therapy; Z79.899 Other long term (current) drug therapy
CPT/HCPCS: 36415; 80053; 80061; 80164; 83036; 84439; 84443; 85025; 85048; 93005

== ENCOUNTER 2024-09-23 12:51 | Outpatient (BNV) | payer MEDICAID, SELFPAY | END 2024-09-23 15:39 | PROVIDERS: Admitting Provider Psychiatry & Neurology Psychiatry; Visit Provider Internal Medicine Cardiovascular Disease | DX: Z13.6 Encounter for screening for cardiovascular disorders (principal) | CPT/HCPCS: 93010 ==

== ENCOUNTER → 2024-09-23 12:51 | Outpatient (BNV) | payer OTHER, SELFPAY | PROVIDERS: Admitting Provider Psychiatry & Neurology Psychiatry; Visit Provider Nurse Practitioner Family | DX: Z00.8 Encounter for other general examination (principal) | CPT/HCPCS: 99499 ==

== ENCOUNTER → 2024-09-23 12:51 | Outpatient (BNV) | payer OTHER, SELFPAY | PROVIDERS: Admitting Provider Psychiatry & Neurology Psychiatry; Visit Provider Psychiatry & Neurology Psychiatry | DX: F25.0 Schizoaffective disorder, bipolar type (principal); Z87.820 Personal history of traumatic brain injury | CPT/HCPCS: 99231; 99232 ==